=== PATIENT | male | born 1995 | race Caucasian/White ===

== ENCOUNTER 2017-09-06 16:06 | Observation (INO) | payer SELFPAY ==
[~2017-09-06] VITALS: Ht 177.8 cm; Wt 67.4 kg
[~2017-09-06 16:06] MED LIST: BPR150TCR PO; CLN.1T PO; GUAN2TAB6 PO; METH10TA8 PO; QTP25T PO; SULF1TAB35 PO
[2017-09-06] MEDS ORDERED: LACTATED RINGERS 1,000 ML IV ONE ×2 (17:08→20:25)
[2017-09-06 17:49] LABS: BASOPHILS # (AUTO) 0.1 10^3/uL (0.0-0.1); BASOPHILS % (AUTO) 1 % (0-10); EOSINOPHILS # (AUTO) 0.2 10^3/uL (0.0-0.3); EOSINOPHILS % (AUTO) 3 % (0-10); HEMATOCRIT 45 % (40-54); HEMOGLOBIN 15.9 G/DL (13.3-17.7); LYMPHOCYTES # (AUTO) 1.8 X 10^3 (1.0-4.0); LYMPHOCYTES % (AUTO) 26 % (12-44); MEAN CORPUSCULAR HEMOGLOBIN 33 PG (25-34); MEAN CORPUSCULAR HGB CONC 36 G/DL (32-36); MEAN CORPUSCULAR VOLUME 92 FL (80-99); MEAN PLATELET VOLUME 10.5 FL (7.4-10.4); MONOCYTES # (AUTO) 0.6 X 10^3 (0.0-1.0); MONOCYTES % (AUTO) 8 % (0-12); NEUTROPHILS # (AUTO) 4.3 X 10^3 (1.8-7.8); NEUTROPHILS % (AUTO) 63 % (42-75); PLATELET COUNT 215 10^3/uL (130-400); RED BLOOD COUNT 4.83 10^6/uL (4.35-5.85); RED CELL DISTRIBUTION WIDTH 11.9 % (10.0-14.5); WHITE BLOOD COUNT 6.9 10^3/uL (4.3-11.0)
--- NOTE | 2017-09-06 17:56 | Diagnostic Imaging Report ---
INDICATION: Fever, nausea, and vomiting. PA and lateral views of the chest were obtained. Comparison made with prior examination from 01/15/2015. FINDINGS: The heart size, mediastinal configuration, and pulmonary vascularity are within normal limits. There is no pleural effusion, pneumothorax, or pneumonia. The osseous structures are unremarkable. IMPRESSION: No acute cardiopulmonary abnormality. Dictated by: Dictated on workstation # [id number]
--- NOTE | 2017-09-06 18:00 | ED General ---
General Chief Complaint: Fever-Adult/Adol Stated Complaint: INTERMITTENT FEVER OF 104/SYNCOPE Nursing Triage Note: c/o intermittant high fever since yesterday. Headache wkth nausea and vomiting reported. Reports fever as high as 104. Nursing Sepsis Screen: No Definite Risk Source of Information: Patient Exam Limitations: No Limitations History of Present Illness Date Seen by Provider: Sep 06, 2017 Time Seen by Provider: 17:00 Initial Comments PT ARRIVES VIA POV FROM HOME-DROVE HIMSELF HERE PT STATES HE STARTED GETTING SICK THE NIGHT BEFORE LAST HAS BEEN RUNNING FEVER 103.8-104.2 C/O NAUSEA AND VOMITING--STATES HE HAS NOT BEEN ABLE TO KEEP ANYTHING DOWN C/O HEADACHE C/O BODY ACHES, AND NECK AND UPPER BACK ARE SORE, BUT NO NECK STIFFNESS C/O MILD NON-PRODUCTIVE COUGH C/O SHORTNESS OF BREATH ON MINIMAL EXERTION C/O MUCH FATIGUE, ESPECIALLY WITH EXERTION STATES HE HAS BEEN LIGHT HEADED TODAY, AND WAS DRIVING ( GIRLFRIEND WAS IN THE CAR WITH HIM ) AND BEGAN TO FEEL LIGHTHEADED AND PULLED OVER AND PASSED OUT FOR 1-2 SECONDS--NO INJURY STATES HE VOIDED AN HOUR AGO, BUT URINE WAS VERY DARK HAS NOT HAD BM SINCE YESTERDAY AM--NOT REALLY EATING OR DRINKING NO ABDOMINAL PAIN NO VISION CHANGES NO URI/SINUS SYMPTOMS OR SORE THROAT STATES HE TRIED TO GO TO WORK TODAY FOR A COUPLE OF HOURS, BUT HAD TO LEAVE BECAUSE HE WAS SO LIGHTHEADED AND HAVING SHORTNESS OF BREATH WITH EXERTION NO KNOWN SICK CONTACTS HAS BEEN TAKING 1200 MG TYLENOL AT A TIME FOR SYMPTOMS--LAST DOSE WAS AT 0500 THIS AM HAS BEEN SWEATING ALOT WHEN HIS FEVER BREAKS PCP: MARIO ALBERTO Allergies and Home Medications Allergies Coded Allergies: No Known Drug Allergies (Unverified , 11/29/11) Home Medications Sulfamethoxazole/Trimethoprim 1 Each Tablet, 1 EACH PO BID Prescribed by: CATHI MANDUJANO on 04/26/15 8802 Patient Home Medication List Home Medication List Reviewed: Yes Constitutional: see HPI, diaphoresis, dizziness, fever, malaise, weakness EENTM: no symptoms reported, No ear pain, No blurred vision, No double vision, No eye pain, No nose congestion, No throat pain, No throat swelling Respiratory: see HPI, cough, dyspnea on exertion, No phlegm, short of breath, No wheezing Cardiovascular: see HPI, No chest pain, No edema, No palpitations, syncope, No vascular heart diseas Gastrointestinal: see HPI, No abdominal pain, No constipation, No diarrhea, loss of appetite, nausea, vomiting Genitourinary: see HPI, decreased output Musculoskeletal: see HPI, back pain, muscle pain, No muscle stiffness, No muscle cramps, neck pain Skin: no symptoms reported, No rash Psychiatric/Neurological: See HPI, Headache, Denies Numbness, Denies Paresthesia, Denies Seizure, Denies Tingling, Denies Tremors Hematologic/Lymphatic: No Symptoms Reported Immunological/Allergic: no symptoms reported Past Ryrkcmr-Artxph-Kebded Hx Patient Social History Alcohol Use: Denies Use Recreational Drug Use: Yes (DAILY MARIJUANA USE--CURRENTLY IN DRUG REHAB-NO THC X 3 WEEKS. PER PT ON 09/06/17) Drug of Choice: marijuana abuse Smoking Status: Current Everyday Smoker (2 PPD) Type Used: Cigarettes (2 PPD) Recent Foreign Travel: No Contact w/Someone Who Travel: No Recent Infectious Disease Expo: No Immunizations Up To Date Tetanus Booster (TDap): Less than 5yrs Seasonal Allergies Seasonal Allergies: No Surgeries History of Surgeries: Yes (HAS SCAR ON LEFT CHEST--UNKNOWN PROCEDURE; RIGHT HAND FX/ORIF; RIGHT INDEX FINGER INJURY-MULTIPLE SURGERIES) Surgeries: Orthopedic Respiratory History of Respiratory Disorde: No Cardiovascular History of Cardiac Disorders: Yes (MURMUR INFANT) Cardiac Disorders: Heart Murmur Neurological History of Neurological Disord: No Reproductive System Hx Reproductive Disorders: No Sexually Transmitted Disease: No Genitourinary History of Genitourinary Disor: No Gastrointestinal History of Gastrointestinal Di: No Musculoskeletal History of Musculoskeletal Dis: No Endocrine History of Endocrine Disorders: No HEENT History of HEENT Disorders: No Cancer History of Cancer: No Psychosocial History of Psychiatric Problem: Yes Behavioral Health Disorders: Depression Integumentary History of Skin or Integumenta: No Blood Transfusions History of Blood Disorders: No Physical Exam Vital Signs Vital Signs - First Documented 09/06/17 17:11 Temp 98.4 Pulse 90 Resp 16 B/P (MAP) 132/70 (90) Pulse Ox 98 O2 Delivery Room Air Capillary Refill : Less Than 3 Seconds General Appearance: No Apparent Distress, WD/WN, Other (SMILING, VERY TALKATIVE. MOVES QUICKLY WITHOUT DIFFICULTY. WALKS UPRIGHT WITHOUT DIFFICULTY. DOES NOT APPEAR ILL) HEENT: PERRL/EOMI, TMs Normal, Normal ENT Inspection, Pharynx Normal, Moist Mucous Membranes, No Photophobia, Other (NO SINUS TENDERNESS; LEFT FRONT TOOTH FX/CARIES) Neck: Full Range of Motion, Normal Inspection, Non Tender, Supple, No Lymphadenopathy (L), No Lymphadenopathy (R) Respiratory: Chest Non Tender, Normal Breath Sounds, No Accessory Muscle Use, No Respiratory Distress Cardiovascular: Regular Rate, Rhythm, No Edema, No JVD, No Murmur, Normal Peripheral Pulses Gastrointestinal: Normal Bowel Sounds, No Organomegaly, No Pulsatile Mass, Non Tender, Soft Back: Normal Inspection, No CVA Tenderness, No Vertebral Tenderness Extremity: Normal Capillary Refill, Normal Inspection, Normal Range of Motion, Non Tender, No Calf Tenderness, No Pedal Edema Neurologic/Psychiatric: Alert, Oriented x3, No Motor/Sensory Deficits, Normal Mood/Affect, conditioner tumbler II-XII Norm as Tested, No Abnormal Cerebellar Tests Skin: Normal Color, Warm/Dry, No Rash Focused Exam Evaluation Lactate Level Laboratory Tests 09/06/17 17:40: Lactic Acid Level 2.07*H 09/06/17 20:03: Lactic Acid Level 0.62 Lactic Acid Level Laboratory Tests Test 09/06/17 17:40 09/06/17 20:03 Lactic Acid Level 2.07 MMOL/L (0.50-2.00) *H 0.62 MMOL/L (0.50-2.00) Discussed Risk,Benefits: Yes Patient Consents: Yes Position: Lying Sterile Technique: Yes Opening Pressure: 4 Fluid Color: CLEAR Size of Disposal Tray Used: Adult Other Comment: PERFORMED BY OUTDOOR GUIDE--SEE PROCEDURE NOTES Progress/Results/Core Measures Suspected Sepsis Recent Fever Within 48 Hours: Yes Infection Criteria Present: Suspected New Infection New/Unexplained Altered Menta: No Sepsis Screen: No Definite Risk Sepsis Diagnosis: SIRS Temperature:98.4 Pulse: 90 Respiratory Rate: 16 Laboratory Tests 09/06/17 17:40: White Blood Count 6.9 Blood Pressure 132 /70 Mean: 90 Laboratory Tests 09/06/17 17:40: Lactic Acid Level 2.07*H 09/06/17 20:03: Lactic Acid Level 0.62 Laboratory Tests 09/06/17 17:40: Creatinine 0.86, Platelet Count 215, Total Bilirubin 0.5 Results/Orders Lab Results Laboratory Tests Test 09/06/17 17:40 09/06/17 17:42 09/06/17 18:50 09/06/17 19:50 Range/Units White Blood Count 6.9 4.3-11.0 10^3/uL Red Blood Count 4.83 4.35-5.85 10^6/uL Hemoglobin 15.9 13.3-17.7 G/DL Hematocrit 45 40-54 % Mean Corpuscular Volume 92 80-99 FL Mean Corpuscular Hemoglobin 33 25-34 PG Mean Corpuscular Hemoglobin Concent 36 32-36 G/DL Red Cell Distribution Width 11.9 10.0-14.5 % Platelet Count 215 130-400 10^3/uL Mean Platelet Volume 10.5 H 7.4-10.4 FL Neutrophils (%) (Auto) 63 42-75 % Lymphocytes (%) (Auto) 26 12-44 % Monocytes (%) (Auto) 8 0-12 % Eosinophils (%) (Auto) 3 0-10 % Basophils (%) (Auto) 1 0-10 % Neutrophils # (Auto) 4.3 1.8-7.8 X 10^3 Lymphocytes # (Auto) 1.8 1.0-4.0 X 10^3 Monocytes # (Auto) 0.6 0.0-1.0 X 10^3 Eosinophils # (Auto) 0.2 0.0-0.3 10^3/uL Basophils # (Auto) 0.1 0.0-0.1 10^3/uL Sodium Level 141 135-145 MMOL/L Potassium Level 4.2 3.6-5.0 MMOL/L Chloride Level 106 98-107 MMOL/L Carbon Dioxide Level 27 21-32 MMOL/L Anion Gap 8 5-14 MMOL/L Blood Urea Nitrogen 15 7-18 MG/DL Creatinine 0.86 0.60-1.30 MG/DL Estimat Glomerular Filtration Rate > 60 BUN/Creatinine Ratio 17 Glucose Level 84 70-105 MG/DL Lactic Acid Level 2.07 *H 0.50-2.00 MMOL/L Calcium Level 9.4 8.5-10.1 MG/DL Magnesium Level 2.2 1.8-2.4 MG/DL Total Bilirubin 0.5 0.1-1.0 MG/DL Aspartate Amino Transf (AST/SGOT) 26 5-34 U/L Alanine Aminotransferase (ALT/SGPT) 58 H 0-55 U/L Alkaline Phosphatase 62 40-136 U/L Total Protein 7.5 6.4-8.2 GM/DL Albumin 4.8 H 3.2-4.5 GM/DL Monoscreen NEGATIVE NEGATIVE Group A Streptococcus Screen NEGATIVE NEGATIVE Urine Color YELLOW Urine Clarity CLEAR Urine pH 8 5-9 Urine Specific [place] 1.010 L 1.016-1.022 Urine Protein NEGATIVE NEGATIVE Urine Glucose (UA) NEGATIVE NEGATIVE Urine Ketones NEGATIVE NEGATIVE Urine Nitrite NEGATIVE NEGATIVE Urine Bilirubin NEGATIVE NEGATIVE Urine Urobilinogen NORMAL NORMAL MG/DL Urine Leukocyte Esterase 1+ H NEGATIVE Urine RBC (Auto) NEGATIVE NEGATIVE Urine RBC NONE /HPF Urine WBC RARE /HPF Urine Crystals NONE /LPF Urine Bacteria NONE /HPF Urine Casts NONE /LPF Urine Mucus NEGATIVE /LPF Urine Culture Indicated NO CSF Tube Number 4 CSF Appearance CLEAR CSF Color COLORLESS CSF WBC 0 0-5 CELLS CSF RBC 0 0-0 CELLS CSF Lymphocytes % CSF Mononuclear WBCs % CSF Polynuclear WBCs % CSF Glucose 51 50-80 MG/DL CSF Total Protein 30 15-40 MG/DL Test 09/06/17 20:03 Range/Units Lactic Acid Level 0.62 0.50-2.00 MMOL/L Micro Results Microbiology 09/06/17 Influenza Types A,B Antigen (KERRY) - Final, Complete My Orders Orders - JASS SOTO DO Saline Lock/Iv-Start (09/06/17 17:08) Monitor-Rhythm Ecg Trace Only (09/06/17 17:08) Cbc With Automated Diff (09/06/17 17:08) Comprehensive Metabolic Panel (09/06/17 17:08) Lactic Acid Analyzer (09/06/17 17:08) Magnesium (09/06/17 17:08) Monotest (09/06/17 17:08) Rapid Strep A Screen (09/06/17 17:08) Ua Culture If Indicated (09/06/17 17:08) Blood Culture (09/06/17 17:08) Influenza A And B Antigens (09/06/17 17:08) Chest Pa/Lat (2 View) (09/06/17 17:08) Saline Lock/Iv-Start (09/06/17 17:08) Lactated Ringers (Lr 1000 Ml Iv Solution (09/06/17 17:08) Ct Head Wo (09/06/17 18:50) Ceftriaxone Injection (Rocephin Injectio (09/06/17 19:15) Csf Standard Panel (09/06/17 19:17) Csf Cell Count (09/06/17 19:17) Csf Glucose (09/06/17 19:17) Csf Total Protein (09/06/17 19:17) Csf Culture (09/06/17 19:17) Fentanyl Injection (Sublimaze Injection (09/06/17 20:25) Saline Lock/Iv-Start (09/06/17 20:25) Lactated Ringers (Lr 1000 Ml Iv Solution (09/06/17 20:25) Medications Given in ED Current Medications Medications Dose Ordered Sig/Jena Route Start Time Stop Time Status Last Admin Dose Admin Ceftriaxone Sodium 2000 mg/ Sodium Chloride 100 ml @ 200 mls/hr ONCE ONCE IV 09/06/17 19:15 09/06/17 19:44 DC 09/06/17 20:29 200 MLS/HR Lactated Ringer's 1,000 ml @ 0 mls/hr Q0M ONCE IV 09/06/17 17:08 09/06/17 17:10 DC 09/06/17 18:07 1,000 MLS/HR Vital Signs/I&O Vital Sign - Last 12Hours 09/06/17 17:11 Temp 98.4 Pulse 90 Resp 16 B/P (MAP) 132/70 (90) Pulse Ox 98 O2 Delivery Room Air Capillary Refill : Less Than 3 Seconds Blood Pressure Mean: 90 Progress Note : Progress Note CONTINUED TO C/O HEADACHE THROUGHOUT ER STAY Diagnostic Imaging Comments CXR--NO ACUTE PROCESS, PER RADIOLOGIST REPORT @ 1814 CT HEAD--NO ACUTE PROCESS, PER RADIOLOGIST REPORT @ 1928 Reviewed: Reviewed by Me Departure Communication (Admissions) Progress Notes 1849--SPOKE WITH KENNA WARREN, FOR LUMBAR PUNCTURE. WOULD LIKE HEAD CT ORDERED, AND SHE WILL BE IN TO SEE PT 1914--BRIANA HERE TO SEE PT AND DO L.P. 2019--SPOKE WITH DR. MADRIGAL, ACCEPTS PT FOR ADMIT Impression Impression: Primary Impression: Fever Additional Impressions: Headache R/O MENINGITIS Disposition: ADMITTED INPATIENT Condition: Stable Admissions Decision to Admit Reason: Admit from ER (General) Decision to Admit/Date: Sep 06, 2017 Time/Decision to Admit Time: 20:20 Departure-Patient Inst. Referrals: NO,LOCAL PHYSICIAN (PCP/Family) Primary Care Physician JASS SOTO DO Sep 06, 2017 18:00
[2017-09-06 18:08] LABS: ALANINE AMINOTRANSFERASE 58 U/L (0-55); ALBUMIN 4.8 GM/DL (3.2-4.5); ALKALINE PHOSPHATASE 62 U/L (40-136); BILIRUBIN,TOTAL 0.5 MG/DL (0.1-1.0); BUN/CREATININE RATIO 17; CALCIUM 9.4 MG/DL (8.5-10.1); CARBON DIOXIDE 27 MMOL/L (21-32); CHLORIDE 106 MMOL/L (98-107); CREATININE SERUM 0.86 MG/DL (0.60-1.30); GFR ESTIMATED > 60; GLUCOSE 84 MG/DL (70-105); MAGNESIUM 2.2 MG/DL (1.8-2.4); POTASSIUM 4.2 MMOL/L (3.6-5.0); SODIUM 141 MMOL/L (135-145); TOTAL PROTEIN 7.5 GM/DL (6.4-8.2)
[2017-09-06 18:58] LABS: BILIRUBIN,URINE NEGATIVE (NEGATIVE); CLARITY,URINE CLEAR; COLOR,URINE YELLOW; GLUCOSE, URINE (UA) NEGATIVE (NEGATIVE); KETONES,URINE NEGATIVE (NEGATIVE); LEUKOCYTE ESTERASE ,URINE 1+ (NEGATIVE); NITRITE,URINE NEGATIVE (NEGATIVE); PH,URINE 8 (5-9); PROTEIN,URINE NEGATIVE (NEGATIVE); UROBILINOGEN,URINE NORMAL (NORMAL)
[2017-09-06 19:04] LABS: WBC,URINE RARE /HPF
[2017-09-06] MEDS ORDERED: cefTRIAXone INJECTION 2,000 MG in NS (IVPB) 100 ML IV ONE (19:15)
--- NOTE | 2017-09-06 19:15 | Diagnostic Imaging Report ---
PROCEDURE: CT head without contrast. TECHNIQUE: Multiple contiguous axial images were obtained through the brain without the use of intravenous contrast. INDICATION: Fever and headache. COMPARISON: 11/29/2011 FINDINGS: There is no midline shift or mass effect. The ventricles and sulci are unremarkable. No evidence for acute intracranial hemorrhage, abnormal extra-axial fluid collections or cerebral edema is present. The basilar cisterns are unremarkable. The bony calvarium is intact. The visualized paranasal sinuses and mastoid air cells are clear. IMPRESSION: Negative appearing noncontrast CT of the head. Dictated by: Dictated on workstation # [id number]
[2017-09-06 20:06] LABS: APPEARANCE,CSF CLEAR; COLOR,CSF COLORLESS; RED BLOOD CELL,CSF 0 CELLS (0-0); WHITE BLOOD CELL,CSF 0 CELLS (0-5)
[2017-09-06 20:07] LABS: CSF TUBE NUMBER 4
--- NOTE | 2017-09-06 20:10 | Anesthesia-Procedure Note ---
Procedures/Interventions Procedure Start/Stop/Diagnosis Date of Procedure: Sep 06, 2017 Start Time: 19:30 Stop Time: 19:56 Lumbar Puncture Discussed Risk,Benefits: Yes Patient Consents: Yes Position: Lying, L4-5 Sterile Technique: Yes (chloraprep) Opening Pressure: 4 mmHg Fluid Color: clear Spinal Needle Used: Other (25g Pencan spinal needle) Procedure Notes Patient tolerated the procedure well. Attempts x 1 at L4-L5. Reported opening pressure of [address] Begum. 3cc of CSF obtained in each of 4 vials and sent to lab. Reported off to ANNA Hancock in ED BRIANA MELENDEZ CRNA Sep 06, 2017 20:10
[2017-09-06] MEDS ORDERED: fentaNYL INJECTION 100 MCG/2 ML AMP IVP STA (20:25)
[2017-09-06 20:26] LABS: CSF GLUCOSE 51 MG/DL (50-80); CSF TOTAL PROTEIN 30 MG/DL (15-40)
[2017-09-06] MEDS: LACTATED RINGERS 1,000 ML IV SCH (23:10)
[2017-09-07] VITALS: BP 126/67
[2017-09-07] MEDS ORDERED: fentaNYL INJECTION 100 MCG/2 ML AMP IV PRN (00:45)
[2017-09-07] MEDS ORDERED: ONDANSETRON 4 MG/2 ML (SDV) Z0FRAN IV PRN (00:45)
[2017-09-07] MEDS ORDERED: ACETAMINOPHEN 500 MG TAB (TYLENOL) PO PRN (00:45)
[2017-09-07] MEDS ORDERED: IBUPROFEN 800 MG (MOTRIN) TAB PO PRN (00:45)
[2017-09-07 02:00] VITALS: BP 109/56
[2017-09-07 04:00] VITALS: BP 127/79
[2017-09-07] MEDS: LACTATED RINGERS 1,000 ML IV SCH ×2 (04:14→09:24)
[2017-09-07 05:23] LABS: BASOPHILS # (AUTO) 0.1 10^3/uL (0.0-0.1); BASOPHILS % (AUTO) 1 % (0-10); EOSINOPHILS # (AUTO) 0.2 10^3/uL (0.0-0.3); EOSINOPHILS % (AUTO) 3 % (0-10); HEMATOCRIT 41 % (40-54); HEMOGLOBIN 14.2 G/DL (13.3-17.7); LYMPHOCYTES # (AUTO) 2.4 X 10^3 (1.0-4.0); LYMPHOCYTES % (AUTO) 36 % (12-44); MEAN CORPUSCULAR HEMOGLOBIN 32 PG (25-34); MEAN CORPUSCULAR HGB CONC 35 G/DL (32-36); MEAN CORPUSCULAR VOLUME 92 FL (80-99); MEAN PLATELET VOLUME 10.5 FL (7.4-10.4); MONOCYTES # (AUTO) 0.7 X 10^3 (0.0-1.0); MONOCYTES % (AUTO) 11 % (0-12); NEUTROPHILS # (AUTO) 3.2 X 10^3 (1.8-7.8); NEUTROPHILS % (AUTO) 49 % (42-75); PLATELET COUNT 175 10^3/uL (130-400); RED CELL DISTRIBUTION WIDTH 11.7 % (10.0-14.5); WHITE BLOOD COUNT 6.6 10^3/uL (4.3-11.0)
[2017-09-07 05:48] LABS: ALANINE AMINOTRANSFERASE 44 U/L (0-55); ALBUMIN 3.7 GM/DL (3.2-4.5); ALKALINE PHOSPHATASE 46 U/L (40-136); BILIRUBIN,TOTAL 0.7 MG/DL (0.1-1.0); BUN/CREATININE RATIO 12; CALCIUM 8.4 MG/DL (8.5-10.1); CARBON DIOXIDE 25 MMOL/L (21-32); CHLORIDE 108 MMOL/L (98-107); CREATININE SERUM 0.81 MG/DL (0.60-1.30); GFR ESTIMATED > 60; GLUCOSE 100 MG/DL (70-105); POTASSIUM 3.9 MMOL/L (3.6-5.0); SODIUM 139 MMOL/L (135-145); TOTAL PROTEIN 5.5 GM/DL (6.4-8.2)
[2017-09-07 06:00] VITALS: BP 100/59
[2017-09-07] MEDS ORDERED: INFLUENZA TRIvalent 2017-2018 0.5 ML/45 MCG SYR IM ONE (07:30)
[2017-09-07 08:00] VITALS: BP 116/63
--- NOTE | 2017-09-07 10:26 | Short Stay Summary ---
History of Present Illness History of Present Illness Reason for visit/HPI 22 yo M that presented to ER with fever and headache. States that he had temperature of 101 at home. No fever upon arrival to ER. Patient states that he does not get headaches very often and this one is worse then normal. + sinus congestion with cough. Denies any medical conditions. States that several people at work have been sick but no one at home is sick. Works at [employer]. Denies any shortness of breath, chest pain, weakness. Date of Admission Sep 06, 2017 at 20:43 Date of Discharge 09/07/2017 Time Seen by Provider: 10:00 Attending Physician Edna Miranda MD Admitting Physician No,Local Physician Consult Allergies and Home Medications Allergies Coded Allergies: No Known Drug Allergies (Unverified , 11/29/11) Patient Home Medication List Home Medication List Reviewed: Yes Past Hluxbbc-Qnpbie-Gnamlb Hx Patient Social History Living Status: Lives with girl friend Alcohol Use: Denies Use Recreational Drug Use: No (3weeks clean) Drug of Choice: Knowthena Smoking Status: Current Everyday Smoker Type Used: Cigarettes Physical Abuse Screen: No Sexual Abuse: No Recent Foreign Travel: No Contact w/other who traveled: No Recent Hopitalizations: No Recent Infectious Disease Expo: No Immunizations Up To Date Tetanus Booster (TDap): Less than 5yrs Date of Influenza Vaccine: Sep 07, 2017 Seasonal Allergies Seasonal Allergies: No Surgeries Yes Orthopedic Respiratory No Cardiovascular Yes (MURMUR INFANT) Heart Murmur Neurological No Reproductive System Hx Reproductive Disorders: No Sexually Transmitted Disease: No Genitourinary No Gastrointestinal No Musculoskeletal Yes Arthritis Endocrine History of Endocrine Disorders: No HEENT History of HEENT Disorders: No Cancer No Psychosocial History of Psychiatric Problem: Yes Behavioral Health Disorders: Sleep Difficulties, Suicide Attempts, Depression Integumentary History of Skin or Integumenta: No Blood Transfusions History of Blood Disorders: No Constitutional: No chills, No dizziness, fever, malaise, No weakness EENTM: nose congestion, No vision loss, No mouth pain, No throat pain, No throat swelling Respiratory: cough, No dyspnea on exertion, No orthopnea, No short of breath Cardiovascular: no symptoms reported, No chest pain, No edema, No palpitations Gastrointestinal: no symptoms reported, No abdominal pain, No constipation, No diarrhea, No nausea, No vomiting Genitourinary: no symptoms reported, No dysuria, No frequency, No hematuria Musculoskeletal: no symptoms reported, No joint pain, No muscle pain, No neck pain Skin: no symptoms reported, No lesions, No rash Psychiatric/Neurological: Headache (improved since yesterday), Denies Tingling , Denies Weakness Physical Exam Vital Signs Vital Signs - First Documented 09/06/17 17:11 Temp 98.4 Pulse 90 Resp 16 B/P (MAP) 132/70 (90) Pulse Ox 98 O2 Delivery Room Air Capillary Refill : Less Than 3 Seconds General Appearance: No Apparent Distress, WD/WN HEENT: PERRL/EOMI, Pharynx Normal, Moist Mucous Membranes Neck: Full Range of Motion, Non Tender, Supple Respiratory: Chest Non Tender, Lungs Clear, Normal Breath Sounds, No Accessory Muscle Use, No Respiratory Distress Cardiovascular: Regular Rate, Rhythm, No Edema, No Murmur, Normal Peripheral Pulses Gastrointestinal: Normal Bowel Sounds, No Organomegaly, Non Tender, Soft Back: No CVA Tenderness, No Vertebral Tenderness Extremity: Normal Capillary Refill, No Calf Tenderness, No Pedal Edema Neurologic/Psychiatric: Alert, Oriented x3, No Motor/Sensory Deficits, Normal Mood/Affect, nurse practitioner physician assistant II-XII Norm as Tested Skin: Normal Color, Warm/Dry Lymphatic: No Adenopathy Clinical Quality Measures DVT/VTE Risk/Contraindication: Risk Factor Score Per Nursin RFS Level Per Nursing on Admit: 2=Moderate Short Stay Diagnosis Discharge Diagnosis-Short Stay Admission Diagnosis: Fever Headache Final Discharge Diagnosis: Acute Viral illness Conclusion Labs Bad tableConclusion/Plan 22 yo M with fever and headache admitted for concerns of possible meningitis Plan Fever - No fever during observation Headache - Headache much improved, no neck pain or stiffness - Normal Labs and LP results Home today with followup at [facility] Copy Copies To 1: EDNA MIRANDA MD, HOLLY R MD Sep 07, 2017 10:26 am
--- NOTE | 2017-09-07 10:31 | Discharge Instructions ---
Discharge Inst-[facility] Discharge Medications New, Converted or Re-Newed RX: Other (none) Patient Instructions Goal/Follow Up Appt: Evelia will call you on Saturday to get you a followup appt at [facility] Patient Instructions: - Ok to go back to work on Saturday - Push hydration Return to The Hospital For: - Fever that does not improve with tylenol or motrin - Worsening headache Activity & Diet Discharge Diet: No Restrictions Activity as Tolerated: Yes Copy Copies To 1: EDNA MADRIGAL MD, HOLLY R MD Sep 07, 2017 10:30
[2017-09-07] MEDS ORDERED: cefTRIAXone 2 GM/NS 100 ML IVPB IV SCH ×2 (23:00)
== END 2017-09-07 10:31 | disposition home or self-care (01) ==
LOC: EDUNIT# 16:06 → ER 16:08 → UNDOADMOB 20:43 → 4TH 20:43 → UNDODISOB 09-07 12:10
PROVIDERS: ADMIT Family Medicine; ATTEND Family Medicine
DX: R50.9 Fever, unspecified (principal); R51 Headache; B34.9 Viral infection, unspecified; F17.210 Nicotine dependence, cigarettes, uncomplicated; F32.9 Major depressive disorder, single episode, unspecified; Z79.899 Other long term (current) drug therapy
CPT/HCPCS: 36415; 70450; 71046; 80053; 81000; 82945; 83605; 83735; 84157; 85025; 86308; 87040; 87070; 87205; 87430; 87804; 89051; 93041; 96361; 96365; 96375; G0378

== ENCOUNTER 2018-11-01 11:42 | Emergency (ER) | payer SELFPAY ==
[~2018-11-01] VITALS: Ht 177.8 cm; Wt 68.0 kg
--- OUTSIDE RECORDS SUMMARY | 2018-11-01 13:30 | XMS REPORT ---
Author Author Migration, Doctor Organization [facility] Address Unknown Phone Unavailable Care Team Providers Care Exhibit Designer Name Role Phone Migration, Doctor Unavailable Unavailable PROBLEMS Type Condition ICD9-CM Code BMR97-NN Code Onset Dates Condition Status SNOMED Code Problem Insomnia, unspecified 780.52 Active 481365837 Problem Unspecified dental caries 521.00 Active 56022805 Problem Routine or child health check V20.2 Active 235781781 Problem Other general medical examination for administrative purposes V70.3 Active 50670912 Problem Personal history of allergy to other foods V15.05 Active 280981188 ALLERGIES No Information ENCOUNTERS Encounter Location Date Diagnosis [place] [address] [place] [id number] [place] [address] Aug, [place] [address] [id number] [place] [address] Aug, [place] [address] [address] [id number] [place] [address] Aug, [place] [address] [place] [address] [id number] [place] [address] Aug, [place] [id number] [place] [address] Aug, Screen for STD (sexually transmitted disease) Z11.3 ; Exposure to STD Z20.2 and Stress headaches F45.41 [place] [id number] [place] [address] 10 Jul, 2015 Cutaneous horn L85.8 [place] [address] [address] [id number] [place] [address] Sep, [place] [address] [address] [id number] [place] [address] Sep, [place] [id number] [place] [address] Sep, [facility] [address] [id number] [place] [address] Sep, [facility] [address] [id number] [place] [address] Jun, [facility] [address] [id number] [place] [address] Jun, [facility] [address] [id number] [place] [address] Mar, [facility] [address] [id number] [place] [address] Mar, [facility] [address] [id number] [place] [address] Jan, [facility] [address] [id number] [place] [address] Dec, [facility] [address] [id number] [place] [address] Nov, [facility] [address] [id number] [place] [address] Nov, [facility] [address] [id number] [place] [address] October, [facility] [address] [id number] [place] [address] October, [facility] [address] [id number] [place] [address] October, [facility] [address] [id number] [place] [address] Sep, [facility] [address] [id number] [place] [address] Sep, [facility] [address] [id number] [place] [address] Aug, [facility] [address] [id number] [place] [address] Aug, [facility] [place] [facility] [address] [id number] [place] [address] Aug, [facility] [address] [id number] [place] [address] Jul, [facility] [place] [facility] [address] [id number] [place] [address] Jul, [facility] [address] [id number] [place] [address] Jul, [facility] [address] [id number] [place] [address] Jul, [facility] [address] [id number] [place] [address] Jul, [facility] [place] [facility] [address] [id number] [place] [address] Jun, [facility] [address] [id number] [place] [address] Jun, [facility] [place] [facility] [address] [facility] [id number] [place] [address] May, [facility] [address] [id number] [place] [address] May, [facility] [place] [facility] [address] [id number] [address] Apr, [facility] [place] [facility] [address] [id number] [place] [address] Apr, [facility] [place] [facility] [address] [id number] [place] [address] Mar, [facility] [place] [facility] [address] [id number] [place] [address] Mar, [facility] [place] [facility] [address] [id number] [place] [address] Jan, [facility] [place] [facility] [address] [id number] [place] [address] Jan, [facility] [place] [facility] [address] [id number] [place] [address] Jan, [facility] [place] [facility] [address] [id number] [place] [address] Jan, [facility] [place] [facility] [address] [id number] [place] [address] Dec, [facility] [place] [facility] [address] [id number] [place] [id number] Nov, [facility] [place] [facility] [address] [id number] [place] [id number] Nov, [facility] [place] [facility] [address] [id number] [place] [address] Nov, [facility] [place] [facility] [address] [id number] [place] [address] Nov, [facility] [place] [facility] [address] [id number] [place] [address] October, [facility] [place] [facility] [address] [id number] [place] [address] Sep, [facility] [place] [facility] [address] [id number] [place] [address] Aug, [facility] [place] [facility] [address] [id number] [place] [address] Aug, [facility] [place] [facility] [address] [id number] [place] [address] Aug, [facility] [place] [facility] [address] [id number] [place] [address] Aug, [facility] [place] [facility] [address] [id number] [place] [address] Aug, [facility] [place] [facility] [address] [facility] [id number] [address] Jul, [facility] [address] [address] Jun, [facility] [address] [facility] [id number] [address] May, [facility] [address] [facility] [id number] [address] May, [facility] [address] [facility] [id number] [place] [address] May, [facility] [id number] [place] [address] Apr, [facility] [address] [address] Mar, [facility] [address] [address] Mar, [facility] [address] [address] Mar, [facility] [address] [address] October, [facility] [id number] [address] Sep, [facility] [id number] [address] Aug, IMMUNIZATIONS No Known Immunizations SOCIAL HISTORY Never Assessed REASON FOR VISIT [place] OF CARE VITAL SIGNS MEDICATIONS Unknown Medications RESULTS No Results PROCEDURES No Known procedures INSTRUCTIONS MEDICATIONS ADMINISTERED No Known Medications MEDICAL (GENERAL) HISTORY Type Description Date Surgical History surgery on right index finger Surgical History surgery on right pinky fracture Hospitalization History surgeries Hospitalization History seizures
--- OUTSIDE RECORDS SUMMARY | 2018-11-01 13:30 | XMS REPORT ---
Author Author Migration, Doctor Organization [facility] Address Unknown Phone Unavailable Care Team Providers Care Christmas Tree Grader Name Role Phone Migration, Doctor Unavailable Unavailable PROBLEMS Type Condition ICD9-CM Code EEZ15-RN Code Onset Dates Condition Status SNOMED Code Problem Insomnia, unspecified 780.52 Active 546022044 Problem Unspecified dental caries 521.00 Active 31959149 Problem Routine or child health check V20.2 Active 079796401 Problem Other general medical examination for administrative purposes V70.3 Active 16211671 Problem Personal history of allergy to other foods V15.05 Active 091059461 ALLERGIES No Information ENCOUNTERS Encounter Location Date Diagnosis [place] [id number] [place] [address] Aug, [place] [id number] [place] [address] Aug, [place] [id number] [place] [address] Aug, [place] [address] [id number] [place] [address] Aug, [place] [id number] [place] [address] Aug, Screen for STD (sexually transmitted disease) Z11.3 ; Exposure to STD Z20.2 and Stress headaches F45.41 [place] [id number] [place] [address] 10 Jul, 2015 Cutaneous horn L85.8 [place] [address] [place] [id number] [place] [address] Sep, [place] [address] [place] [address] [id number] [place] [address] Sep, [place] [address] [place] [address] Sep, [facility] [address] [id number] [place] [address] Sep, [facility] [address] [id number] [place] [address] Jun, [facility] [address] [id number] [place] [address] Jun, [facility] [address] [id number] [place] [address] Mar, [facility] [address] [id number] [place] [address] Mar, [facility] [address] [id number] [place] [address] Jan, [facility] [address] [id number] [place] [address] Dec, [facility] [address] [id number] [place] [address] Nov, [facility] [address] [id number] [place] [address] Nov, [facility] [address] [id number] [place] [address] October, [facility] [address] [id number] [place] [address] October, [facility] [address] [id number] [place] [address] October, [facility] [address] [id number] [place] [address] Sep, [facility] [address] [id number] [place] [address] Sep, [facility] [address] [id number] [place] [address] Aug, [facility] [address] [id number] [place] [address] Aug, [facility] [place] [facility] [address] [id number] [place] [address] Aug, [facility] [address] [id number] [place] [address] Jul, [facility] [place] [facility] [address] [id number] [place] [address] Jul, [facility] [address] [id number] [place] [address] Jul, [facility] [address] [id number] [place] [address] Jul, [facility] [address] [id number] [place] [address] Jul, [facility] [place] [facility] [address] [id number] [place] [address] Jun, [facility] [address] [id number] [place] [address] Jun, [facility] [place] [facility] [address] [facility] [id number] [place] [address] May, [facility] [address] [id number] [place] [address] May, [facility] [place] [facility] [address] [id number], [place] [address] Apr, [facility] [place] [facility] [address] [id number] [place] [address] Apr, [facility] [place] [facility] [address] [id number], [place] [address] Mar, [facility] [place] [facility] [address] [id number] [place] [address] Mar, [facility] [place] [facility] [address] [id number] [place] [address] Jan, [facility] [place] [facility] [address] [id number] [place] [address] Jan, [facility] [place] [facility] [address] [id number] [place] [address] Jan, [facility] [place] [facility] [address] [id number] [place] [address] Jan, [facility] [place] [facility] [address] [id number] [place] [address] Dec, [facility] [place] [facility] [address] [id number] [place] [id number] Nov, [facility] [place] [facility] [address] [id number] [place] [id number] Nov, [facility] [place] [facility] [address] [id number] [place] [address] Nov, [facility] [place] [facility] [address] [id number] [place] [address] Nov, [facility] [place] [facility] [address] [id number] [place] [address] October, [facility] [place] [facility] [address] [id number] [place] [address] Sep, [facility] [place] [facility] [address] [id number] [place] [address] Aug, [facility] [place] [facility] [address] [id number] [place] [address] Aug, [facility] [place] [facility] [address] [id number] [place] [address] Aug, [facility] [place] [facility] [address] [id number] [place] [address] Aug, [facility] [place] [facility] [address] [id number] [place] [address] Aug, [facility] [place] [facility] [address] [facility] [id number], [place] [address] Jul, [facility] [address], [place] [address] Jun, [facility] [address] [facility] [id number], [place] [address] May, [facility] [address] [facility] [id number], [place] [address] May, [facility] [address] [facility] [id number][place] [address] May, [facility] [address] [place] [address] Apr, [facility] [address]65[address] [address] Mar, [facility] [address]65[address], [place] [address] Mar, [facility] [address]65100[place], [place] [address] Mar, [facility] [address]65[address] [address] October, [facility] [address] [id number] [address] Sep, [facility] [address] [id number] [address] Aug, IMMUNIZATIONS No Known Immunizations SOCIAL HISTORY Never Assessed REASON FOR VISIT EMR-[facility] PLAN OF CARE VITAL SIGNS MEDICATIONS Unknown Medications RESULTS No Results PROCEDURES No Known procedures INSTRUCTIONS MEDICATIONS ADMINISTERED No Known Medications MEDICAL (GENERAL) HISTORY Type Description Date Surgical History surgery on right index finger Surgical History surgery on right pinky fracture Hospitalization History surgeries Hospitalization History seizures
--- OUTSIDE RECORDS SUMMARY | 2018-11-01 13:30 | XMS REPORT ---
Author Author EDNA MADRIGAL Organization [facility] [place] Address [address] [place] [address] Care Team Providers Care Senior Test Analyst Name Role Phone EDNA MADRIGAL Unavailable PROBLEMS Type Condition ICD9-CM Code ZBF70-FA Code Onset Dates Condition Status SNOMED Code Problem Unspecified dental caries 521.00 Active 38955438 Problem Insomnia, unspecified 780.52 Active 579374803 Problem Routine infant or child health check V20.2 Active 091308661 Problem Personal history of allergy to other foods V15.05 Active 721161025 Problem Other general medical examination for administrative purposes V70.3 Active 70507595 ALLERGIES No Information ENCOUNTERS Encounter Location Date Diagnosis [place] [address] [address] Aug, [place] [address] [address] Aug, [place] [address] [address] Aug, [place] [address] [id number] [place] [address] Aug, [place] [address] [address] Aug, Screen for STD (sexually transmitted disease) Z11.3 ; Exposure to STD Z20.2 and Stress headaches F45.41 [place] [address] [address] 10 Jul, 2015 Cutaneous horn L85.8 [place] [address] [address] 14 Sep, 2014 [place] [address] [place] [address] Sep, [facility] [address] [id number] [place] [address] Sep, [facility] [place] [facility] [address] [id number] [place] [address] Sep, [facility] [address] [id number] [place] [address] Jun, [facility] [place] [facility] [address] [id number] [place] [address] Jun, [facility] [place] [facility] [address] [id number] [place] [address] Mar, [facility] [place] [facility] [address] [id number] [place] [address] Mar, [facility] [address] [id number] [place] [address] Jan, [facility] [place] [facility] [address] [id number] [place] [address] Dec, [facility] [place] [facility] [address] [id number] [place] [address] Nov, [facility] [place] [facility] [address] [id number] [place] [address] Nov, [facility] [place] [facility] [address] [id number] [place] [address] October, [facility] [place] [facility] [address] [id number] [place] [address] October, [facility] [place] [facility] [address] [id number] [place] [address] October, [facility] [place] [facility] [address] [id number] [place] [address] Sep, [facility] [place] [facility] [address] [id number] [place] [address] Sep, [facility] [place] [facility] [address] [id number] [place] [address] Aug, [facility] [place] [facility] [address] [id number] [place] [address] Aug, [facility] [place] [facility] [address] [id number] [place] [address] 06 Aug, 2012 [facility] [place] [facility] [address] [id number] [place] [address] Jul, [facility] [place] [facility] [address] [id number] [place] [address] Jul, [facility] [place] [facility] [address] [id number] [place] [address] Jul, [facility] [place] [facility] [address] [facility] [id number] [place] [address] Jul, [facility] [place] [facility] [address] [id number] [place] [address] Jul, [facility] [place] [facility] [address] [facility] [id number] [place] [address] Jun, [facility] [place] [facility] [address] [facility] [id number] [place] [address] Jun, [facility] [place] [facility] [address] [facility] [id number] [address] May, [facility] [place] [facility] [address] [id number] [place] [address] May, [facility] [place] [facility] [address] [id number] [place] [address] Apr, [facility] [place] [facility] [address] [id number] [place] [address] Apr, [facility] [place] [facility] [address] [facility] [id number] [place] [address] 08 Mar, 2012 [facility] [place] [facility] [address] [id number] [place] [address] Mar, [facility] [place] [facility] [address] [id number] [place] [address] Jan, [facility] [place] [facility] [address] [id number] [place] [address] Jan, [facility] [place] [facility] [address] [id number] [place] [address] Jan, [facility] [place] [facility] [address] [id number] [place] [address] Jan, [facility] [place] [facility] [address] [id number] [place] [address] Dec, [facility] [place] [facility] [address] [id number] [place] [id number] Nov, [facility] [place] [facility] [address] [id number] [place] [id number] Nov, [facility] [place] [facility] [address] [id number] [place] [address] Nov, [facility] [place] [facility] [address] [id number] [place] [address] Nov, [facility] [place] [facility] [address] [id number] [place] [address] October, [facility] [place] [facility] [address] [id number] [place] [address] Sep, [facility] [place] [facility] [address] [id number] [place] [address] Aug, [facility] [place] [facility] [address] [id number] [place] [address] Aug, [facility] [place] [facility] [address] [id number] [place] [address] Aug, [facility] [place] [facility] [address] [id number] [place] [address] Aug, [facility] [place] [facility] [id number] [address] Aug, [facility] [place] [id number] [address] Jul, [facility] [place] [id number] [address] Jun, [facility] [place] [id number] [address] May, [facility] [place] [id number] [address] May, [facility] [place] [id number] [address] May, [facility] [place] [id number] [address] Apr, [facility] [place] [id number] [address] Mar, [facility] [place] [id number] [address] Mar, [facility] [place] [id number] [address] Mar, [facility] [place] [id number] [address] October, [facility] [place] [id number] [address] Sep, [facility] [place] [id number] [address] Aug, IMMUNIZATIONS No Known Immunizations SOCIAL HISTORY Never Assessed REASON FOR VISIT Hospital admit/DC PLAN OF CARE VITAL SIGNS MEDICATIONS Unknown Medications RESULTS No Results PROCEDURES No Known procedures INSTRUCTIONS MEDICATIONS ADMINISTERED No Known Medications MEDICAL (GENERAL) HISTORY Type Description Date Surgical History surgery on right index finger Surgical History surgery on right pinky fracture Hospitalization History surgeries Hospitalization History seizures
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
--- NOTE | 2018-11-01 13:33 | NUR ---
Patient was walking out and Dr. Antunez advised that the patient was next to be seen. Patient decided he would stay in ER and be seen.
[2018-11-01] MEDS ORDERED: cefTRIAXone FOR IV USE 1,000 MG in WATER (STERILE) FOR INJECTION 10 ML IV ONE (13:45)
[2018-11-01] MEDS ORDERED: NS IV 1000 ML 1,000 ML IV SCH (13:45)
[2018-11-01] MEDS ORDERED: fentaNYL INJECTION 100 MCG/2 ML AMP IVP ONE (13:45)
--- NOTE | 2018-11-01 13:55 | ED GU-Male ---
General Chief Complaint: - Urinary Stated Complaint: SWELLING IN GROIN / BLOOD IN URINE Nursing Triage Note: Patient ambulatory to ER room 6 with complaint of pain and swelling to left groin. Patient states he was helping move a TV yesterday, and tripped. He began having pain to the left groin and this morning states he has swelling to the size of a tennis ball to the left groin area. He states he has had blood present in his urine. Source: patient Exam Limitations: no limitations History of Present Illness Date Seen by Provider: November 01, 2018 Time Seen by Provider: 13:50 Initial Comments This 21-year-old white male presents with left testicular pain and swelling that began starting last night. Patient thought he may have strained himself moving a heavy TV. The patient denies associated urethral discharge or groin rash. The patient has been in a monogamous relationship with his significant other female for the past year. Patient denies fever or chills. Patient has noted hematuria. The patient is concerned that he could have a torsion of his testicle similar to his father in the last several years. Allergies and Home Medications Allergies Coded Allergies: No Known Drug Allergies (Unverified , 11/29/11) Home Medications No Active Prescriptions or Reported Meds Patient Home Medication List Home Medication List Reviewed: Yes Review of Systems Review of Systems Constitutional: No chills, No fever EENTM: no symptoms reported Respiratory: no symptoms reported Cardiovascular: no symptoms reported Gastrointestinal: no symptoms reported Genitourinary: see HPI, hematuria, pain Musculoskeletal: no symptoms reported Skin: no symptoms reported Psychiatric/Neurological: No Symptoms Reported Endocrine: No Symptoms Reported Hematologic/Lymphatic: No Symptoms Reported Past Vmnsbns-Skjlaq-Dqphxg Hx Past Med/Social Hx: Reviewed Nursing Past Med/Soc Hx Patient Social History Alcohol Use: Occasionally Uses Alcohol Beverage of Choice: Beer Recreational Drug Use: Yes Drug of Choice: marijuana Smoking Status: Current Everyday Smoker Type Used: Cigarettes 2nd Hand Smoke Exposure: Yes Recent Foreign Travel: No Contact w/Someone Who Travel: No Recent Infectious Disease Expo: No Recent Hopitalizations: No Immunizations Up To Date Tetanus Booster (TDap): Less than 5yrs PED Vaccines UTD: Yes Date of Influenza Vaccine: Sep 07, 2017 Seasonal Allergies Seasonal Allergies: Yes Past Medical History Surgeries: Yes Orthopedic Respiratory: No Cardiac: No Heart Murmur Neurological: No Reproductive Disorders: No Sexually Transmitted Disease: No Genitourinary: No Gastrointestinal: No Musculoskeletal: No Arthritis Endocrine: No HEENT: No Cancer: No Psychosocial: No Sleep Difficulties, Suicide Attempts, Depression Integumentary: No Blood Disorders: No Physical Exam Vital Signs Vital Signs - First Documented 11/01/18 12:17 Temp 98.3 Pulse 101 Resp 16 B/P (MAP) 118/73 (88) Pulse Ox 100 O2 Delivery Room Air Capillary Refill : Less Than 3 Seconds Height, Weight, BMI Height: 5'10.00" Weight: 150lbs. 9.0oz. [id number]; 20.7 BMI Method:Stated General Appearance: WD/WN, mild distress HEENT: normal ENT inspection Neck: normal inspection Cardiovascular: regular rate, rhythm Respiratory: lungs clear Gastrointestinal: normal bowel sounds Male: other (there is swelling and tenderness to palpation of the left testicle. The left hemiscrotum is inflamed.) Back: normal inspection ( No urethral discharge is appreciated.) Extremities: normal range of motion Neurologic/Psychiatric: no motor/sensory deficits Skin: normal color, warm/dry Progress/Results/Core Measures Suspected Sepsis Recent Fever Within 48 Hours: No Infection Criteria Present: None New/Unexplained Altered Menta: No Sepsis Screen: No Definite Risk SIRS Temperature:98.3 Pulse: 101 Respiratory Rate: 16 Blood Pressure 118 /73 Mean: 88 Results/Orders Lab Results Laboratory Tests Test 11/01/18 14:23 Range/Units My Orders Orders - CHUCK HERNANDEZ MD Ns Iv 1000 Ml (Sodium Chloride 0.9%) (11/01/18 13:45) Ceftriaxone For Iv Use (Rocephin For I (11/01/18 13:45) Fentanyl Injection (Sublimaze Injection (11/01/18 13:45) Ua Culture If Indicated (11/01/18 14:01) Medications Given in ED Current Medications Medications Dose Ordered Sig/Jena Route Start Time Stop Time Status Last Admin Dose Admin Ceftriaxone Sodium 1000 mg/ Sterile Water 10 ml @ 200 mls/hr ONCE ONCE IV 11/01/18 13:45 11/01/18 13:47 DC 11/01/18 13:55 200 MLS/HR Fentanyl Citrate 50 mcg ONCE ONCE IVP 11/01/18 13:45 11/01/18 13:46 DC 11/01/18 13:55 50 MCG Vital Signs/I&O 11/01/18 12:17 Temp 98.3 Pulse 101 Resp 16 B/P (MAP) 118/73 (88) Pulse Ox 100 O2 Delivery Room Air Capillary Refill : Less Than 3 Seconds Blood Pressure Mean: 88 Progress Note : Time: 14:24 Progress Note The patient received a gram of Rocephin IV. My intention is to place the patient on 14 days of doxycycline 100 mg twice a day. My bedside ultrasound I believe demonstrated flow to both testicles. After discussion of the risks and benefits of ruling out torsion of the testicle with formal ultrasound the patient would like to have the ultrasound of his testicle performed at [place]. Departure Impression Primary Impression: Epididymitis, left Disposition: 02 XFER SHT-TRM HOSP Condition: Improved Transfer Time Spoke to Accepting Phy: 14:[address] Valdovinos at [place] Transfer Time: 14:37 Transfer Facility: [place] Method of Transfer: Private Vehicle Departure-Patient Inst. Referrals: NO,LOCAL PHYSICIAN (PCP) Primary Care Physician Scripts No Active Prescriptions or Reported Meds CHUCK HERNANDEZ MD November 01, 2018 13:54
[2018-11-01 14:38] LABS: BILIRUBIN,URINE NEGATIVE (NEGATIVE); CLARITY,URINE SLIGHTLY CLOUDY; COLOR,URINE YELLOW; GLUCOSE, URINE (UA) NEGATIVE (NEGATIVE); KETONES,URINE 3+ (NEGATIVE); LEUKOCYTE ESTERASE ,URINE 2+ (NEGATIVE); NITRITE,URINE POSITIVE (NEGATIVE); PH,URINE 5 (5-9); PROTEIN,URINE 1+ (NEGATIVE); UROBILINOGEN,URINE 1 MG/DL (NORMAL)
[2018-11-01 14:50] LABS: BACTERIA,URINE MODERATE /HPF; RBC,URINE 0-2 /HPF; SQUAMOUS EPITHELIAL CELL,UR 0-2 /HPF
[2018-11-01 14:56] VITALS: BP 112/69
--- NOTE | 2018-11-01 15:05 | NUR ---
Patient transferred to [facility] by private vehicle. Patient's mother driving. Patient requests to have IV taken out prior to transfer. Patient is awake and alert x 4. Patient given packet to give to [facility] upon arrival at their facility. Patient verbalizes understanding of going directly to [facility].
== END 2018-11-01 15:08 | disposition short-term general hospital (02) ==
LOC: EDUNIT# 11:42 → ER 11:43
DX: N45.1 Epididymitis (principal); F32.9 Major depressive disorder, single episode, unspecified; F12.10 Cannabis abuse, uncomplicated; F17.210 Nicotine dependence, cigarettes, uncomplicated; Z98.890 Other specified postprocedural states; Z91.5 Personal history of self-harm
CPT/HCPCS: 81000; 87088

== ENCOUNTER 2019-08-30 01:58 | Emergency (ER) | payer SELFPAY ==
[~2019-08-30] VITALS: Ht 177.8 cm; Wt 70.8 kg
[2019-08-30 02:10] VITALS: BP 124/78
[2019-08-30] MEDS ORDERED: ORPHENADRINE 60 MG/2 ML (NORFLEX) AMP IM STA (02:47)
[2019-08-30] MEDS ORDERED: KETOROLAC 60 MG/2 ML VIAL IM STA (02:47)
[2019-08-30] MEDS ORDERED: HYDROcodone/APAP 5 MG/325 MG (LORTAB) TAB PO ONE (03:00)
--- NOTE | 2019-08-30 03:01 | ED Back Pain ---
General Chief Complaint: Back Problems Stated Complaint: FELL BACK PAIN Nursing Triage Note: MID-BACK PAIN AFTER FALL FROM 3RD RUNG OF LADDER ONTO DRYWALL SHEETS. DENIES OTHER INJURY/LOC. Nursing Sepsis Screen: No Definite Risk Source of Information: Patient Exam Limitations: No Limitations History of Present Illness Date Seen by Provider: Aug 30, 2019 Time Seen by Provider: 02:41 Initial Comments Here with report of fall earlier today off the third step of the ladder onto the floor. States he landed flat on his back. He was able to get up and complete the job. He took a shower at home and was doing okay but felt some back pain. He laid down in bed and was watching TV and always fine. He had to get up to let the dog out and he got severe spasms in his back. Those have persisted until now. Denies bowel or bladder incontinence. Denies numbness or tingling. Denies weakness in his legs. Has not taken anything for the pain. He does not think he broke anything but did not know today for the spasms. Location: Lumbar Spine, Paraspinous Muscles Timing/Duration: 1-3 Hours Severity: Moderate, Severe Pain/Injury Location: Back Radiation: Buttocks Method of Injury: Fall Modifying Factors: Worse With Movement, Worse With Other (sitting or transitioning from laying to standing) Associated Symptoms: muscle spasms; No fever, No weakness, No numbness in legs/feet, No tingling in legs/feet, No sensory/motor loss; lower back pain; No loss of bladder control, No loss of bowel control Allergies and Home Medications Allergies Coded Allergies: No Known Drug Allergies (Unverified , 11/29/11) Home Medications No Active Prescriptions or Reported Meds Patient Home Medication List Home Medication List Reviewed: Yes Review of Systems Constitutional: see HPI Respiratory: No cough; other (pain takes his breath away sometimes but denies breathing problems specifically.) Cardiovascular: no symptoms reported Gastrointestinal: no symptoms reported Genitourinary: no symptoms reported Musculoskeletal: back pain, muscle pain, muscle stiffness Skin: no symptoms reported Past Gxeyeox-Lreytx-Wbbbgm Hx Past Med/Social Hx: Reviewed Nursing Past Med/Soc Hx Patient Social History Alcohol Use: Rarely Uses Number of Drinks Today: AA Alcohol Beverage of Choice: Beer Recreational Drug Use: Yes Drug of Choice: CANNIBUS Smoking Status: Current Everyday Smoker Type Used: Cigarettes 2nd Hand Smoke Exposure: Yes Recent Foreign Travel: No Contact w/Someone Who Travel: No Recent Infectious Disease Expo: No Recent Hopitalizations: No Physical Abuse: No Sexual Abuse: No Mistreated: No Fear: No Immunizations Up To Date Tetanus Booster (TDap): Less than 5yrs PED Vaccines UTD: Yes Date of Influenza Vaccine: Sep 07, 2017 Seasonal Allergies Seasonal Allergies: Yes Past Medical History Surgeries: Yes Orthopedic Respiratory: No Cardiac: No Heart Murmur Neurological: No Reproductive Disorders: No Sexually Transmitted Disease: No Genitourinary: No Gastrointestinal: No Musculoskeletal: No Arthritis Endocrine: No HEENT: No Cancer: No Psychosocial: No Sleep Difficulties, Suicide Attempts, Depression Integumentary: No Blood Disorders: No Family Medical History Reviewed Nursing Family Hx Physical Exam Vital Signs Vital Signs - First Documented 08/30/19 02:10 Temp 36.7 Pulse 88 Resp 18 B/P (MAP) 124/78 (93) Pulse Ox 99 O2 Delivery Room Air Capillary Refill : Less Than 3 Seconds Height, Weight, BMI Height: 5'10.00" Weight: 150lbs. 9.0oz. 68.911552ne; 22.00 BMI Method:Stated General Appearance: WD/WN, Mild Distress Cardiovascular: Regular Rate, Rhythm, No Murmur Respiratory: Lungs Clear, Normal Breath Sounds Gastrointestinal: Non Tender, Soft Back: Decreased Range of Motion, Muscle Spasm (paraspinous especially lower); No Vertebral Tenderness Extremity: Other (able to walk and stand but has difficulty with transitions) Neurologic/Psychiatric: Alert Skin: Normal Color, Warm/Dry; No Rash; Other (No lesions no lesions) Progress/Results/Core Measures Results/Orders My Orders Orders - JACQUELIN MCCOY MD Hydrocodone/Apap 5/325 Tablet (Lortab 5 (08/30/19 03:00) Ketorolac Injection (Toradol Injection) (08/30/19 02:47) Orphenadrine Injection (Norflex Injectio (08/30/19 02:47) Vital Signs/I&O 08/30/19 02:10 Temp 36.7 Pulse 88 Resp 18 B/P (MAP) 124/78 (93) Pulse Ox 99 O2 Delivery Room Air Blood Pressure Mean: 93 Progress Progress Note : Progress Note Seen and evaluated. Did discuss medical therapy versus medical therapy plus radiographic evaluation. We both agree that we will initiate therapy now on if it's not better in a few days then he can return for further evaluation including radiographical studies. Toradol 60 mg IM, Norflex 60 mg IM and hydrocodone 5/325 one tab by mouth given. Discharged home with return precautions. Patient verbalize understanding instructions and agreement with plan. Departure Impression Primary Impression: Back strain Qualified Codes: S39.012A - Strain of muscle, fascia and tendon of lower back, initial encounter Additional Impression: Muscle spasm of back Disposition: HOME, SELF-CARE Condition: Stable Departure-Patient Inst. Decision time for Depature: 02:59 Referrals: [facility] (PCP/Family) Primary Care Physician Patient Instructions: Muscle Spasms (DC), Lumbar Muscle Strain (DC) Add. Discharge Instructions: All discharge instructions reviewed with patient and/or family. Voiced understanding. You may take ibuprofen 600 mg every 8 hours as needed for pain. You may also take Tylenol/acetaminophen 1000 mg every 8 hours as needed for pain. Drink plenty of fluids. You may use oemk-oro-lxaldut Icy Hot with lidocaine patches, Aspercreme with lidocaine patches, Salonpas with lidocaine patches or similar items to area of concern per package directions.You may use swlh-spx-mtbjcem Icy Hot with lidocaine patches, Aspercreme with lidocaine patches, Salonpas with lidocaine patches for similar items to area of concern per package directions. Follow-up with your Dr. in a few days for recheck. Return for worse pain, weakness, numbness between your legs, difficulty with walking or going to the bathroom or other concerns as needed. Scripts Cyclobenzaprine HCl (Cyclobenzaprine HCl) 10 Mg Tablet 10 MG PO Q8H PRN for SPASMS, #15 TAB 0 Refills Prov: JACQUELIN MCCOY MD 08/30/19 JACQUELIN MCCOY MD Aug 30, 2019 03:01
[2019-08-30] MEDS ORDERED: CYCL10TA9 PO (03:02)
--- OUTSIDE RECORDS SUMMARY | 2019-08-30 22:34 | XMS REPORT ---
Author Author Meng Cordero Doctor Organization [facility] Address Unknown Phone Unavailable Care Team Providers Care Child Psychology Teacher Name Role Phone Migration, Doctor Unavailable Unavailable PROBLEMS Type Condition ICD9-CM Code LHU02-VK Code Onset Dates Condition S tatus SNOMED Code Problem Insomnia, unspecified 780.52 Active 971545633 Problem Unspecified dental caries 521.00 Acti ve 29919881 Problem Routine or child health check V20.2 Active 226801182 Problem Other general medical examination for administrative purpo ses V70.3 Active 96403286 Problem Personal history of allergy to other foods V15.05 Active 830082076 ALLERGIES No Information ENCOUNTERS Encounter Location Date Diagnosis [place] [address] [address] Apr, Encounter for immunization Z23 [place] [address] [address] Aug, [place] [address] [address] Aug, [place] [address] [address] Aug, [place] [address] [address] Aug, [place] [address] [address] 07 Aug, 2015 Screen for STD (sexually transmitted dis ease) Z11.3 ; Exposure to STD Z20.2 and Stress headaches F45.41 [place] [address] [address] 10 Jul, 2015 Cutaneous horn L85.8 [place] [address] [address] 14 Sep, 2014 [place] [address] [place] [id number] [place] [address] Sep, [facility] [address] [facility] [id number] [place] [address] Sep, [facility] [address] [id number] [place] [address] Sep, [facility] [address] [id number] [place] [address] Jun, [facility] [address] [id number] [place] [address] Jun, [facility] [address] [id number] [place] [address] Mar, [facility] [address] [id number] [place] [address] Mar, [facility] [address] [id number] [place] [address] Jan, [facility] [address] [id number] [place] [address] Dec, [facility] [address] [id number] [place] [address] Nov, [facility] [address] [id number] [place] [address] Nov, [facility] [address] [id number] [place] [address] October, [facility] [address] [id number] [place] [address] October, [facility] [address] [id number] [place] [address] October, [facility] [address] [id number] [place] [address] Sep, [facility] [address] [id number] [place] [address] Sep, [facility] [address] [id number] [place] [address] Aug, [facility] [address] [id number] [place] [address] Aug, [facility] [address] [id number] [place] [address] Aug, [facility] [address] [id number] [place] [address] Jul, [facility] [address] [id number] [place] [address] Jul, [facility] [address] [id number] [place] [address] Jul, [facility] [address] [id number] [place] [address] Jul, [facility] [address] [id number] [place] [address] Jul, [facility] [address] [place] [id number] [place] [address] Jun, [facility] [address] [id number] [place] [address] Jun, [facility] [address] [place] [id number] [place] [address] May, [facility] [address] [id number] [place] [address] May, [facility] [address] [place] [id number] [place] [address] Apr, [facility] [address] [id number] [place] [address] Apr, [facility] [address] [id number] [place] [address] Mar, [facility] [address] [id number] [place] [address] Mar, [facility] [address] [id number] [place] [address] Jan, [facility] [address] [id number] [place] [address] Jan, [facility] [address] [id number] [place] [address] Jan, [facility] [address] [id number] [place] [address] Jan, [facility] [address] [id number] [place] [address] Dec, [facility] [address] [id number] [place] [id number] Nov[place] [facility] [address] [id number] [place] [id number] Nov, [facility] [address] [place] [id number] [place] [address] Nov, [facility] [address] [place] [id number] [place] [address] Nov, [facility] [address] [place] [id number] [place] [address] October, [facility] [address] [id number] [place] [address] Sep, [facility] [address] [place] [id number] [place] [address] Aug, [facility] [address] [place] [id number] [place] [address] Aug, [facility] [address] [place] [id number] [place] [address] Aug, [facility] [address] [id number] [place] [address] Aug, [facility] [address] [place] [id number] [place] [address] Aug, [facility] [address] [id number] [place] [address] Jul, [facility] [address] [place] [id number] [place] [address] Jun, [facility] [address] [id number] [place] [address] May, [facility] [address] [id number] [place] [address] May, [facility] [address] [id number] [place] [address] May, [facility] [address] [id number] [place] [address] Apr, [facility] [address] [place] [id number] [place] [address] Mar, [facility] [address] [place] [id number] [place] [address] Mar, [facility] [address] [place] [id number] [place] [address] Mar, [facility] [address] [place] [id number] [place] [address] October, [facility] [address] [place] [id number] [place] [address] Sep, [facility] [address] [id number] [place] [address] Aug, IMMUNIZATIONS No Known Immunizations SOCIAL HISTORY Never Assessed REASON FOR VISIT PLAN OF CARE VITAL SIGNS Height 68 in 2013-10-12 Weight 147 lbs 2013-10-12 Temperature 98 degrees Fahrenheit 2013-10-12 Heart Rate 80 bpm 2013-10-12 Respiratory Rate 24 2013-10-12 Blood pressure systolic 108 mmHg 2013-10-12 Blood pressure diastolic 68 mmHg 2013-10-12 MEDICATIONS Unknown Medications RESULTS No Results PROCEDURES No Known procedures INSTRUCTIONS MEDICATIONS ADMINISTERED No Known Medications MEDICAL (GENERAL) HISTORY Type Description Date Surgical History surgery on right index finger Surgical History surgery on right pinky fracture Hospitalization History surgeries Hospitalization History seizures
--- OUTSIDE RECORDS SUMMARY | 2019-08-30 22:34 | XMS REPORT ---
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 Technology (ONC 15.99.04.3023.Diam.31.00.0.348404) and the National Committee for Test Facility Engineer (NCQA, as an eMeasure certified technology). FOR RECORDS PERTAINING TO PATIENTS WHO ARE OR HAVE BEEN ENROLLED IN A CHEMICAL D EPENDENCY/SUBSTANCE ABUSE PROGRAM, SOME INFORMATION MAY BE OMITTED. This clinica l summary was aggregated from multiple sources. Caution should be exercised in using it in the provision of clinical care. This summary normalizes information from multiple sources, and as a consequence, information in this document may ma terially change the coding, format and clinical context of patient data. In anjana tion, data may be omitted in some cases. CLINICAL DECISIONS SHOULD BE BASED ON T HE PRIMARY CLINICAL RECORDS. [employer] provides no warranty or guara ntee of the accuracy or completeness of information in this document.The followi ng information is based on time limited clinical information UNRECOGNIZED CONTENT PROVIDED BELOW FOR UNRECOGNIZED SECTION MEDICAL (GENERAL) HISTORY Type Description Date Surgical History surgery on right in dex finger Surgical History surgery on right pi nky fracture Hospitalization History surgeries Hospitalization History seizures UNRECOGNIZED CONTENT PROVIDED BELOW FOR UNRECOGNIZED SECTION REASON FOR VISIT [id number]
--- OUTSIDE RECORDS SUMMARY | 2019-08-30 22:34 | XMS REPORT ---
Author Author Meng Cordero Doctor Organization [facility] Address Unknown Phone Unavailable Care Team Providers Care Cnc Service Engineer Name Role Phone Migration, Doctor Unavailable Unavailable PROBLEMS Type Condition ICD9-CM Code [id number] Code Onset Dates Condition S tatus SNOMED Code Problem Insomnia, unspecified 780.52 Active 121299068 Problem Unspecified dental caries 521.00 Acti ve 62853121 Problem Routine or child health check V20.2 Active 863872080 Problem Other general medical examination for administrative purpo ses V70.3 Active 22754109 Problem Personal history of allergy to other foods V15.05 Active 868924232 ALLERGIES No Information ENCOUNTERS Encounter Location Date Diagnosis [place] [address] [address] Aug, [place] [address] [place] [id number] [address] [place] [address] Aug, [place] [address] [address] Aug, [place] [address] [place] [id number] [address] [place] [address] Aug, [place] [address] [place] [id number] [address] [place] [address] Aug, Screen for STD (sexually tra nsmitted disease) Z11.3 ; Exposure to STD Z20.2 and Stress headaches F45.41 [place] [address] [place] [id number] [place] [address] 10 Jul, 2015 Cutaneous horn L85.8 [place] [address] [place] [id number] [address] [place] [address] Sep, [place] [address] [address] Sep, [facility] [address] [id number] [address] [place] [address], [place] [address] Sep, [facility] [address] [id number] [address] [place] [address], [place] [address] Sep, [facility] [address] [id number] [address] [place] [address], [place] [address] Jun, [facility] [address] [id number] [address] [place] [address], [place] [address] Jun, [facility] [address] [id number] [address] [place] [address], [place] [address] Mar, [facility] [address] [id number] [address] [place] [address], [place] [address] Mar, [facility] [address] [id number] [address] [place] [address], [place] [address] Jan, [facility] [address] [id number] [address] [place] [address], [place] [address] Dec, [facility] [address] [id number] [address] [place] [address], [place] [address] Nov, [facility] [address] [id number] [address] [place] [address], [place] [address] Nov, [facility] [address] [id number] [address] [place] [address], [place] [address] October, [facility] [address] [id number] [address] [place] [address], [place] [address] October, [facility] [address] [id number] [address] [place] [address], [place] [address] October, [facility] [address] [id number] [address] [place] [address], [place] [address] Sep, [facility] [address] [id number] [address] [place] [address], [place] [address] Sep, [facility] [address] [id number] [address] [place] [address], [place] [address] Aug, [facility] [address] [id number] [address] [place] [address], [place] [address] Aug, [facility] [address] [id number] [address] [place] [address], [place] [address] Aug, [facility] [address] [id number] [address] [place] [address], [place] [address] Jul, [facility] [address] [id number] [address] [place] [address], [place] [address] Jul, [facility] [address] [id number] [address] [place] [address], [place] [address] Jul, [facility] [address] [id number] [address] [place] [address], [place] [address] Jul, [facility] [address] [id number] [address] [place] [address], [place] [address] Jul, [facility] [address] [id number] [address] [place] [address], [place] [address] Jun, [facility] [address] [id number] [address] [place] [address], [place] [address] Jun, [facility] [address] [id number] [address] [place] [address], [place] [address] May, [facility] [address] [id number] [address] [place] [address], [place] [address] May, [facility] [address] [id number] [address] [place] [address] Apr, [facility] [address] [id number] [address] [place] [address], [place] [address] Apr, [facility] [address] [id number] [address] [place] [address], [place] [address] Mar, [facility] [address] [id number] [address] [place] [address], [place] [address] Mar, [facility] [address] [id number] [address] [place] [address], [place] [address] Jan, [facility] [address] [id number] [address] [place] [address], [place] [address] Jan, [facility] [address] [id number] [address] [place] [address], [place] [address] Jan, [facility] [address] [id number] [address] [place] [address], [place] [address] Jan, [facility] [address] [id number] [address] [place] [address], [place] [address] Dec, [facility] [address] [id number] [address] [place] [id number] Nov, [facility] [address] [id number] [address] [place] [id number] Nov, [facility] [address] [id number] [address] [place] [address], [place] [address] Nov, [facility] [address] [id number] [address] [place] [address], [place] [address] Nov, [facility] [address] [id number] [address] [place] [address], [place] [address] October, [facility] [address] [id number] [address] [place] [address], [place] [address] Sep, [facility] [address] [id number] [address] [place] [address], [place] [address] Aug, [facility] [address] [id number] [address] [place] [address], [place] [address] Aug, [facility] [address] [id number] [address] [place] [address], [place] [address] Aug, [facility] [address] [id number] [address] [place] [address], [place] [address] Aug, [facility] [address] [id number] [address] [address] Aug, [facility] [address] [id number] [address] [place] [address] Jul, [facility] [address] [id number] [address] [place] [address] Jun, [facility] [address] [id number] [address] [place] [address] May, [facility] [address] [id number] [address] [place] [address] May, [facility] [address] [id number] [address] [place] [address] May, [facility] [address] [id number] [address] [place] [address] Apr, [facility] [address] [id number] [address] [place] [address] Mar, [facility] [address] [id number] [address] [place] [address] Mar, [facility] [address] [id number] [address] [place] [address] Mar, [facility] [address] [id number] [address] [place] [address] October, [facility] [address] [id number] [address] [place] [address] Sep, [facility] [address] [id number] [address] [place] [address] Aug, IMMUNIZATIONS No Known Immunizations SOCIAL HISTORY Never Assessed REASON FOR VISIT PLAN OF CARE VITAL SIGNS Height 65.5 in 2011-10-19 Weight 123 lbs 2011-10-19 Heart Rate 76 bpm 2011-10-19 Blood pressure systolic 98 mmHg 2011-10-19 Blood pressure diastolic 62 mmHg 2011-10-19 MEDICATIONS Unknown Medications RESULTS No Results PROCEDURES No Known procedures INSTRUCTIONS MEDICATIONS ADMINISTERED No Known Medications MEDICAL (GENERAL) HISTORY Type Description Date Surgical History surgery on right index finger Surgical History surgery on right pinky fracture Hospitalization History surgeries Hospitalization History seizures
--- OUTSIDE RECORDS SUMMARY | 2019-08-30 22:35 | XMS REPORT ---
Author Author Meng Cordero Doctor Organization [facility] Address Unknown Phone Unavailable Care Team Providers Care Tree Shear Operator Name Role Phone Migration, Doctor Unavailable Unavailable PROBLEMS Type Condition ICD9-CM Code EQX61-DA Code Onset Dates Condition S tatus SNOMED Code Problem Insomnia, unspecified 780.52 Active 594721693 Problem Unspecified dental caries 521.00 Acti ve 46132579 Problem Routine or child health check V20.2 Active 918185928 Problem Other general medical examination for administrative purpo ses V70.3 Active 50933816 Problem Personal history of allergy to other foods V15.05 Active 097130982 ALLERGIES No Information ENCOUNTERS Encounter Location Date Diagnosis [place] [address] [address] Aug, [place] [address] [place] [id number] [address] [place] [address] Aug, [place] [address] [address] Aug, [place] [address] [place] [id number] [address] [place] [address] Aug, [place] [address] [place] [id number] [place] [address] 07 Aug, 2015 Screen for STD (sexually tra nsmitted disease) Z11.3 ; Exposure to STD Z20.2 and Stress headaches F45.41 [place] [address] [place] [id number] [address] [place] [address] 10 Jul, 2015 Cutaneous horn L85.8 [place] [address] [place] [id number] [address] [place] [address] Sep, [place] [address] [address] Sep, [facility] [address] [id number] [address] [place] [address], [place] [address] Sep, [facility] [address] [id number] [address] [place] [address], [place] [address] Sep, [facility] [address] [id number] [address] [place] [address], [place] [address] Jun, [facility] [address] [id number] [address] [place] [address], [place] [address] Jun, [facility] [address] [id number] [address] [place] [address], [place] [address] Mar, [facility] [address] [id number] [address] [place] [address], [place] [address] Mar, [facility] [address] [id number] [address] [place] [address], [place] [address] Jan, [facility] [address] [id number] [address] [place] [address], [place] [address] Dec, [facility] [address] [id number] [address] [place] [address], [place] [address] Nov, [facility] [address] [id number] [address] [place] [address], [place] [address] Nov, [facility] [address] [id number] [address] [place] [address], [place] [address] October, [facility] [address] [id number] [address] [place] [address], [place] [address] October, [facility] [address] [id number] [address] [place] [address], [place] [address] October, [facility] [address] [id number] [address] [place] [address], [place] [address] Sep, [facility] [address] [id number] [address] [place] [address], [place] [address] Sep, [facility] [address] [id number] [address] [place] [address], [place] [address] Aug, [facility] [address] [id number] [address] [place] [address], [place] [address] Aug, [facility] [address] [id number] [address] [place] [address], [place] [address] Aug, [facility] [address] [id number] [address] [place] [address], [place] [address] Jul, [facility] [address] [id number] [address] [place] [address], [place] [address] Jul, [facility] [address] [id number] [address] [place] [address], [place] [address] Jul, [facility] [address] [id number] [address] [place] [address], [place] [address] Jul, [facility] [address] [id number] [address] [place] [address], [place] [address] Jul, [facility] [address] [id number] [address] [place] [address], [place] [address] Jun, [facility] [address] [id number] [address] [place] [address], [place] [address] Jun, [facility] [address] [id number] [address] [place] [address], [place] [address] May, [facility] [address] [id number] [address] [place] [address], [place] [address] May, [facility] [address] [id number] [address] [place] [address] Apr, [facility] [address] [id number] [address] [place] [address], [place] [address] Apr, [facility] [address] [id number] [address] [place] [address], [place] [address] Mar, [facility] [address] [id number] [address] [place] [address], [place] [address] Mar, [facility] [address] [id number] [address] [place] [address], [place] [address] Jan, [facility] [address] [id number] [address] [place] [address], [place] [address] Jan, [facility] [address] [id number] [address] [place] [address], [place] [address] Jan, [facility] [address] [id number] [address] [place] [address], [place] [address] Jan, [facility] [address] [id number] [address] [place] [address], [place] [address] Dec, [facility] [address] [id number] [address] [place] [id number] Nov, [facility] [address] [id number] [address] [place] [id number] Nov, [facility] [address] [id number] [address] [place] [address], [place] [address] Nov, [facility] [address] [id number] [address] [place] [address], [place] [address] Nov, [facility] [address] [id number] [address] [place] [address], [place] [address] October, [facility] [address] [id number] [address] [place] [address], [place] [address] Sep, [facility] [address] [id number] [address] [place] [address], [place] [address] Aug, [facility] [address] [id number] [address] [place] [address], [place] [address] Aug, [facility] [address] [id number] [address] [place] [address], [place] [address] Aug, [facility] [address] [id number] [address] [place] [address], [place] [address] Aug, [facility] [address] [id number] [place] [address] Aug, [facility] [address] [id number] [address] [place] [address] Jul, [facility] [address] [id number] [address] [place] [address] Jun, [facility] [address] [id number] [address] [place] [address] May, [facility] [address] [id number] [address] [place] [address] May, [facility] [address] [id number] [address] [place] [address] May, [facility] [address] [id number] [address] [place] [address] Apr, [facility] [address] [id number] [address] [place] [address] Mar, [facility] [address] [id number] [address] [place] [address] Mar, [facility] [address] [id number] [address] [place] [address] Mar, [facility] [address] [id number] [address] [place] [address] October, [facility] [address] [id number] [address] [place] [address] Sep, [facility] [address] [id number] [address] [place] [phone] Aug, IMMUNIZATIONS No Known Immunizations SOCIAL HISTORY Never Assessed REASON FOR VISIT [facility] [place] PLAN OF CARE VITAL SIGNS MEDICATIONS Unknown Medications RESULTS No Results PROCEDURES No Known procedures INSTRUCTIONS MEDICATIONS ADMINISTERED No Known Medications MEDICAL (GENERAL) HISTORY Type Description Date Surgical History surgery on right index finger Surgical History surgery on right pinky fracture Hospitalization History surgeries Hospitalization History seizures
--- OUTSIDE RECORDS SUMMARY | 2019-08-30 22:35 | XMS REPORT ---
Author Author Meng Cordero Doctor Organization [facility] Address Unknown Phone Unavailable Care Team Providers Care Bow Maker Machine Tender Name Role Phone Migration, Doctor Unavailable Unavailable PROBLEMS Type Condition ICD9-CM Code MUQ23-HP Code Onset Dates Condition S tatus SNOMED Code Problem Insomnia, unspecified 780.52 Active 089650382 Problem Unspecified dental caries 521.00 Acti ve 70932558 Problem Routine or child health check V20.2 Active 831631754 Problem Other general medical examination for administrative purpo ses V70.3 Active 76852511 Problem Personal history of allergy to other foods V15.05 Active 382943261 ALLERGIES Substance Reaction Event Type Date Status Hand Wash Mill Operator Unknown Non Drug Allergy Sep, Active ENCOUNTERS Encounter Location Date Diagnosis [place] [address] [place] [id number] [place] [id number] Aug, [place] [address] [place] [id number] [address] [place] [id number] Aug, [place] [address] [place] [id number] [place] [address] Aug, [place] [address] [place] [id number] [place] [phone] Aug, [place] [address] [place] [id number] [place] [address] Aug, Screen for STD (sexually tra nsmitted disease) Z11.3 ; Exposure to STD Z20.2 and Stress headaches F45.41 [place] [address] [place] [id number] [address] [place] [id number] 10 Jul, 2015 Cutaneous horn L85.8 [place] [address] [place] [id number] [address] [place] [id number] Sep, [facility] [address] [id number] [address] [place] [address], [place] [address] Sep, [facility] [address] [id number] [address] [place] [address], [place] [address] Sep, [facility] [address] [id number] [address] [place] [address], [place] [address] Sep, [facility] [address] [id number] [address] [place] [address], [place] [address] Jun, [facility] [address] [id number] [address] [place] [address], [place] [address] Jun, [facility] [address] [id number] [address] [place] [address], [place] [address] Mar, [facility] [address] [id number] [address] [place] [address], [place] [address] Mar, [facility] [address] [id number] [address] [place] [address], [place] [address] Jan, [facility] [address] [id number] [address] [place] [address], [place] [address] Dec, [facility] [address] [id number] [address] [place] [address], [place] [address] Nov, [facility] [address] [id number] [address] [place] [address], [place] [address] Nov, [facility] [address] [id number] [address] [place] [address], [place] [address] October, [facility] [address] [id number] [address] [place] [address], [place] [address] October, [facility] [address] [id number] [address] [place] [address], [place] [address] October, [facility] [address] [id number] [address] [place] [address], [place] [address] Sep, [facility] [address] [id number] [address] [place] [address], [place] [address] Sep, [facility] [address] [id number] [address] [place] [address], [place] [address] Aug, [facility] [address] [id number] [address] [place] [address], [place] [address] Aug, [facility] [address] [id number] [address] [place] [address], [place] [address] Aug, [facility] [address] [id number] [address] [place] [address], [place] [address] Jul, [facility] [address] [id number] [address] [place] [address], [place] [address] Jul, [facility] [address] [id number] [address] [place] [address], [place] [address] Jul, [facility] [address] [id number] [address] [place] [address], [place] [address] Jul, [facility] [address] [id number] [address] [place] [address], [place] [address] Jul, [facility] [address] [id number] [address] [place] [address], [place] [address] Jun, [facility] [address] [id number] [address] [place] [address], [place] [address] Jun, [facility] [address] [id number] [address] [place] [address], [place] [address] May, [facility] [address] [id number] [address] [place] [address], [place] [address] May, [facility] [address] [id number] [address] [place] [address], [place] [address] Apr, [facility] [address] [id number] [address] [place] [address], [place] [address] Apr, [facility] [address] [id number] [address] [place] [address], [place] [address] 08 Mar, 2012 [facility] [address] [id number] [address] [place] [address], [place] [address] Mar, [facility] [address] [id number] [address] [place] [address], [place] [address] Jan, [facility] [address] [id number] [address] [place] [address], [place] [address] Jan, [facility] [address] [id number] [address] [place] [address], [place] [address] Jan, [facility] [address] [id number] [address] [place] [address], [place] [address] Jan, [facility] [address] [id number] [address] [place] [address], [place] [address] Dec, [facility] [address] [id number] [address] [place] [id number] Nov, [facility] [address] [id number] [address] [place] [id number] Nov, [facility] [address] [id number] [address] [place] [address], [place] [address] Nov, [facility] [address] [id number] [address] [place] [address], [place] [address] Nov, [facility] [address] [id number] [address] [place] [address], [place] [address] October, [facility] [address] [id number] [address] [place] [address], [place] [address] Sep, [facility] [address] [id number] [address] [place] [address], [place] [address] Aug, [facility] [address] [id number] [address] [place] [address], [place] [address] Aug, [facility] [address] [id number] [address] [place] [address], [place] [address] Aug, [facility] [address] [id number] [address] [place] [address], [place] [address] Aug, [facility] [address] [id number] [address] [place] [address] Aug, [facility] [address] [id number] [address] [place] [address] Jul, [facility] [address] [id number] [address] [place] [address] Jun, [facility] [address] [id number] [address] [place] [address] May, [facility] [address] [id number] [address] [place] [address] May, [facility] [address] [id number] [address] [place] [address] May, [facility] [address] [id number] [address] [place] [address] Apr, [facility] [address] [id number] [address] [place] [address] Mar, [facility] [address] [id number] [address] [place] [address] Mar, [facility] [address] [id number] [address] [place] [id number] Mar, [facility] [address] [id number] [address] [place] [address] October, [facility] [address] [id number] [address] [place] [address] Sep, [facility] [address] [id number] [address] [place] [phone] Aug, IMMUNIZATIONS No Known Immunizations SOCIAL HISTORY Never Assessed REASON FOR VISIT EMR-[facility] PLAN OF CARE VITAL SIGNS MEDICATIONS Unknown Medications RESULTS No Results PROCEDURES No Known procedures INSTRUCTIONS MEDICATIONS ADMINISTERED No Known Medications MEDICAL (GENERAL) HISTORY Type Description Date Surgical History surgery on right index finger Surgical History surgery on right pinky fracture Hospitalization History surgeries Hospitalization History seizures
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
--- OUTSIDE RECORDS SUMMARY | 2019-08-30 22:35 | XMS REPORT ---
Author Author Meng Cordero Doctor Organization [facility] Address Unknown Phone Unavailable Care Team Providers Care Student Services Vice President Name Role Phone Migration, Doctor Unavailable Unavailable PROBLEMS Type Condition ICD9-CM Code LGS26-VS Code Onset Dates Condition S tatus SNOMED Code Problem Insomnia, unspecified 780.52 Active 704186943 Problem Unspecified dental caries 521.00 Acti ve 14798752 Problem Routine or child health check V20.2 Active 760778036 Problem Other general medical examination for administrative purpo ses V70.3 Active 60996081 Problem Personal history of allergy to other foods V15.05 Active 859194144 ALLERGIES No Information ENCOUNTERS Encounter Location Date Diagnosis [place] [address] [address] Aug, [place] [address] [place] [id number] [address] [place] [address] Aug, [place] [address] [address] Aug, [place] [address] [place] [id number] [address] [place] [address] Aug, [place] [address] [place] [id number] [address] [place] [phone] Aug, Screen for STD (sexually tra nsmitted disease) Z11.3 ; Exposure to STD Z20.2 and Stress headaches F45.41 [place] [address] [place] [id number] [address] [place] [address] 10 Jul, 2015 Cutaneous horn L85.8 [place] [address] [address] [place] [id number] [address] [place] [address] Sep, [place] [address] [address] Sep, [facility] [address] [id number] [address] [place] [address], [place] [address] Sep, [facility] [address] [id number] [address] [place] [address], [place] [address] Sep, [facility] [address] [id number] [address] [place] [address], [place] [address] Jun, [facility] [address] [id number] [address] [place] [address], [place] [address] Jun, [facility] [address] [id number] [address] [place] [address], [place] [address] Mar, [facility] [address] [id number] [address] [place] [address], [place] [address] Mar, [facility] [address] [id number] [address] [place] [address], [place] [address] Jan, [facility] [address] [id number] [address] [place] [address], [place] [address] Dec, [facility] [address] [id number] [address] [place] [address], [place] [address] Nov, [facility] [address] [id number] [address] [place] [address], [place] [address] Nov, [facility] [address] [id number] [address] [place] [address], [place] [address] October, [facility] [address] [id number] [address] [place] [address], [place] [address] October, [facility] [address] [id number] [address] [place] [address], [place] [address] October, [facility] [address] [id number] [address] [place] [address], [place] [address] Sep, [facility] [address] [id number] [address] [place] [address], [place] [address] Sep, [facility] [address] [id number] [address] [place] [address], [place] [address] Aug, [facility] [address] [id number] [address] [place] [address], [place] [address] Aug, [facility] [address] [id number] [address] [place] [address], [place] [address] Aug, [facility] [address] [id number] [address] [place] [address], [place] [address] Jul, [facility] [address] [id number] [address] [place] [address], [place] [address] Jul, [facility] [address] [id number] [address] [place] [address], [place] [address] Jul, [facility] [address] [id number] [address] [place] [address], [place] [address] Jul, [facility] [address] [id number] [address] [place] [address], [place] [address] Jul, [facility] [address] [id number] [address] [place] [address], [place] [address] Jun, [facility] [address] [id number] [address] [place] [address], [place] [address] Jun, [facility] [address] [id number] [address] [place] [address], [place] [address] May, [facility] [address] [id number] [address] [place] [address], [place] [address] May, [facility] [address] [id number] [address] [place] [address] Apr, [facility] [address] [id number] [address] [place] [address], [place] [address] Apr, [facility] [address] [id number] [address] [place] [address], [place] [address] Mar, [facility] [address] [id number] [address] [place] [address], [place] [address] Mar, [facility] [address] [id number] [address] [place] [address], [place] [address] Jan, [facility] [address] [id number] [address] [place] [address], [place] [address] Jan, [facility] [address] [id number] [address] [place] [address], [place] [address] Jan, [facility] [address] [id number] [address] [place] [address], [place] [address] Jan, [facility] [address] [id number] [address] [place] [address], [place] [address] Dec, [facility] [address] [id number] [address] [place] [id number] Nov, [facility] [address] [id number] [address] [place] [id number] Nov, [facility] [address] [id number] [address] [place] [address], [place] [address] Nov, [facility] [address] [id number] [address] [place] [address], [place] [address] Nov, [facility] [address] [id number] [address] [place] [address], [place] [address] October, [facility] [address] [id number] [address] [place] [address], [place] [address] Sep, [facility] [address] [id number] [address] [place] [address], [place] [address] Aug, [facility] [address] [id number] [address] [place] [address], [place] [address] Aug, [facility] [address] [id number] [address] [place] [address], [place] [address] Aug, [facility] [address] [id number] [address] [place] [address], [place] [address] Aug, [facility] [address] [id number] [place] [address] Aug, [facility] [address] [id number] [address] [place] [address] Jul, [facility] [address] [id number] [address] [place] [address] Jun, [facility] [address] [id number] [address] [place] [address] May, [facility] [address] [id number] [address] [place] [address] May, [facility] [address] [id number] [address] [place] [address] May, [facility] [address] [id number] [address] [place] [address] Apr, [facility] [address] [id number] [address] [place] [address] Mar, [facility] [address] [id number] [address] [place] [address] Mar, [facility] [address] [id number] [address] [place] [address] Mar, [facility] [address] [id number] [address] [place] [address] October, [facility] [address] [id number] [address] [place] [address] Sep, [facility] [address] [id number] [address] [place] [address] Aug, IMMUNIZATIONS No Known Immunizations SOCIAL HISTORY Never Assessed REASON FOR VISIT PLAN OF CARE VITAL SIGNS MEDICATIONS Unknown Medications RESULTS No Results PROCEDURES No Known procedures INSTRUCTIONS MEDICATIONS ADMINISTERED No Known Medications MEDICAL (GENERAL) HISTORY Type Description Date Surgical History surgery on right index finger Surgical History surgery on right pinky fracture Hospitalization History surgeries Hospitalization History seizures
== END 2019-08-30 03:11 | disposition home or self-care (01) ==
LOC: EDUNIT# 01:58 → ER 01:59
DX: S39.012A Strain of muscle, fascia and tendon of lower back, initial encounter (principal); F17.210 Nicotine dependence, cigarettes, uncomplicated; W10.9XXA Fall (on) (from) unspecified stairs and steps, initial encounter
CPT/HCPCS: 99284

== ENCOUNTER 2020-10-04 08:45 | Emergency (ER) | payer SELFPAY ==
[~2020-10-04] VITALS: Ht 177 cm; Wt 70.8 kg
[2020-10-04 08:45] VITALS: BP 130/80
[~2020-10-04 08:45] MED LIST changes: +CYCL10TA9 PO
--- NOTE | 2020-10-04 09:06 | ED Integumentary General ---
General Stated Complaint: RED STREAK DOWN L HIP/LEG History of Present Illness Date Seen by Provider: Oct 04, 2020 Time Seen by Provider: 08:50 Initial Comments Patient is a 25-year-old male who presents to the emergency department today with a chief complaint of swelling in his left groin with redness increasing over the course of the last 24 hours down into the medial thigh. Patient states his symptoms started with a very small red spot on Saturday. He states yesterday he went to pending sale to [facility] and was given a prescription for some antibiotics. He is only taken 1 dose of the antibiotics. He states it made his stomach a little bit upset so he did not take it a second time. He denies any fevers, chills, nausea vomiting or diarrhea. He denies any penile discharge or concerns for sexually transmitted infection. No swelling or discomfort in the right groin. Patient states when he woke up this morning he had difficulty bearing weight on the left leg and states that he noticed that there was a significant amount of increased swelling and pain with the redness is spreading down his thigh this morning. All other review of systems reviewed and negative except as stated above. Timing/Duration: yesterday Severity: moderate Location: genitalia Possible Cause: no cause identified Associated Symptoms: swelling/mass/lumps Allergies and Home Medications Allergies Coded Allergies: No Known Drug Allergies (Unverified , 11/29/11) Home Medications Clindamycin HCl 300 Mg Capsule, 300 MG PO QID Prescribed by: DAVID CLEMENTE on 10/04/20 0909 Cyclobenzaprine HCl 10 Mg Tablet, 10 MG PO Q8H PRN for SPASMS Prescribed by: JACQUELIN MCCOY on 08/30/19 0302 Patient Home Medication List Home Medication List Reviewed: Yes Review of Systems Review of Systems Constitutional: see HPI EENTM: no symptoms reported Respiratory: no symptoms reported Cardiovascular: no symptoms reported Gastrointestinal: no symptoms reported Genitourinary: no symptoms reported Musculoskeletal: other (left leg discomfort) Skin: other (swelling groin and redness) All Other Systems Reviewed Negative Unless Noted: Yes Past Wrtejmu-Ckrbwx-Anckdt Hx Patient Social History Alcohol Beverage of Choice: Beer Drug of Choice: CANNIBUS Type Used: Cigarettes 2nd Hand Smoke Exposure: Yes Recent Hopitalizations: No Immunizations Up To Date Tetanus Booster (TDap): Less than 5yrs PED Vaccines UTD: Yes Date of Influenza Vaccine: Sep 07, 2017 Seasonal Allergies Seasonal Allergies: Yes Past Medical History Surgeries: Yes Orthopedic Respiratory: No Cardiac: No Heart Murmur Neurological: No Reproductive Disorders: No Sexually Transmitted Disease: No Genitourinary: No Gastrointestinal: No Musculoskeletal: No Arthritis Endocrine: No HEENT: No Cancer: No Psychosocial: No Sleep Difficulties, Suicide Attempts, Depression Integumentary: No Blood Disorders: No Physical Exam Vital Signs Vital Signs - First Documented 10/04/20 08:45 Temp 36.5 Pulse 91 Resp 18 B/P (MAP) 130/80 (97) Pulse Ox 99 Capillary Refill : General Appearance: WD/WN, no apparent distress Neck: full range of motion Cardiovascular: regular rate, rhythm Respiratory: lungs clear, normal breath sounds, no respiratory distress, no accessory muscle use Gastrointestinal: non tender, soft Extremities: normal range of motion, non-tender Neurologic/Psychiatric: alert, normal mood/affect, oriented x 3 Skin: other (Large area measuring in excess of 20 cm to the left thigh, enlarged and indurated lymph nodes in the left groin; no palpable abscess or fluctuance. No open wounds or drainage. Lymph nodes in the left groin are very tender to palpation. No palpable lymph nodes in the right groin. Area of erythema is marked with a skin marker) Skin Problem Character: erythema Progress/Results/Core Measures Results/Orders Vital Signs/I&O 10/04/20 08:45 Temp 36.5 Pulse 91 Resp 18 B/P (MAP) 130/80 (97) Pulse Ox 99 Departure Impression Primary Impression: Cellulitis of left thigh Disposition: 01 HOME, SELF-CARE Condition: Stable Departure-Patient Inst. Decision time for Depature: 09:04 Referrals: [facility] (PCP/Family) Primary Care Physician Patient Instructions: Cellulitis (Skin Infection), Adult ED Add. Discharge Instructions: Continue the Bactrim and add the clindamycin antibiotic to the regimen for the next week and a half. You may take an ekwt-dlu-twcbeqn probiotic such as Culturelle while you are on the antibiotics to help protect your gut. These antibiotics together may make you a little bit nauseous. Always eat when you take them. Keep the area clean and dry. Wash frequently. Come back to the emergency room for recheck tomorrow. Come back sooner if you develop high fever or have worsening redness pain or swelling or any other emergent concerning symptoms. You can take jthj-lgn-bfsqgbt ibuprofen 3 tablets which is 600 mg 3 times a day with food for pain. Scripts Clindamycin HCl (Clindamycin HCl) 300 Mg Capsule 300 MG PO QID for 7 Days, #40 CAP Prov: DAVID CLEMENTE MD 10/04/20 Work/School Note: Work Release Form Date Seen in the Emergency Department: Oct 04, 2020 Return to Work: Oct 06, 2020 Copy Copies To 1: ROBIN SNOW KATHRYN M MD Oct 04, 2020 09:06
[2020-10-04] MEDS ORDERED: CLIN300C12 PO (09:09)
== END 2020-10-04 09:18 | disposition home or self-care (01) ==
LOC: EDUNIT# 08:45 → ER 08:47
DX: L03.116 Cellulitis of left lower limb (principal); Z77.22 Contact with and (suspected) exposure to environmental tobacco smoke (acute) (chronic)
CPT/HCPCS: 99282

== ENCOUNTER 2020-10-05 09:53 | Emergency (ER) | payer SELFPAY ==
[~2020-10-05] VITALS: Ht 172 cm; Wt 63.0 kg
[~2020-10-05 09:53] MED LIST changes: +CLIN300C12 PO
--- NOTE | 2020-10-05 10:29 | ED Integumentary General ---
General Chief Complaint: Skin/Wound Problems Stated Complaint: RED STREAK L LEG Nursing Triage Note: PT AMB TO ROOM 8 PT HERE FOR RECHECK OF WOUND ON L GROIN. PT WOUND DECREASE IN REDDNESS AND WARMTH. CONT TO HAVE PAIN 8/10, AREA NEAR GROIN SL LARGER FIRM AREA NOTED. PT HAS TAKEN 3 CLINDAMYCIN AND 2 BACTRIM DS SINCE YESTERDAY. Source: patient Exam Limitations: no limitations (ORLY GALLARDO MED STUDENT) History of Present Illness Date Seen by Provider: Oct 05, 2020 Time Seen by Provider: 10:15 Initial Comments Pt is a 25yo male who presents to the ED complaining of worsening pain and swelling in his left groin. He was seen here yesterday for this, diagnosed with cellulitis and given bactrim and clindamycin. He states that this morning he noticed worsening swelling and burning pain in the area. Rates pain as 8/10. He has taken 3 clindamycin and 2 bactrim since leaving here yesterday. Denies fever, chills, n/v or any urinary symptoms or discharge. Timing/Duration: yesterday Severity: moderate Location: extremities (L groin) Associated Symptoms: rash, swelling/mass/lumps (ORLY GALLARDO MED STUDENT) Allergies and Home Medications Allergies Coded Allergies: No Known Drug Allergies (Unverified , 11/29/11) Home Medications Clindamycin HCl 300 Mg Capsule, 300 MG PO QID Prescribed by: DAVID CLEMENTE on 10/04/20 0909 Cyclobenzaprine HCl 10 Mg Tablet, 10 MG PO Q8H PRN for SPASMS Prescribed by: JACQUELIN MCCOY on 08/30/19 0302 Patient Home Medication List Home Medication List Reviewed: Yes (CATHI MANDUJANO APRN) Review of Systems Review of Systems Constitutional: No chills, No fever EENTM: no symptoms reported Respiratory: No cough, No short of breath Cardiovascular: No chest pain Gastrointestinal: No nausea, No vomiting Genitourinary: No discharge, No dysuria Musculoskeletal: no symptoms reported Skin: change in color (redness), lumps (L groin) Psychiatric/Neurological: No Symptoms Reported Endocrine: No Symptoms Reported Hematologic/Lymphatic: Swollen Glands (L groin) (ORLY GALLARDO MED STUDENT) Past Ggjsssm-Ruprpc-Zxnqnu Hx Patient Social History Alcohol Use: Denies Use Number of Drinks Today: AA Alcohol Beverage of Choice: Beer Drug of Choice: CANNIBUS Smoking Status: Current Everyday Smoker Type Used: Cigarettes 2nd Hand Smoke Exposure: Yes Recent Infectious Disease Expo: No Recent Hopitalizations: No (ORLY GALLARDO MED STUDENT) Immunizations Up To Date Tetanus Booster (TDap): Less than 5yrs PED Vaccines UTD: Yes Date of Influenza Vaccine: Sep 07, 2017 (ORLY GALLARDO MED STUDENT) Seasonal Allergies Seasonal Allergies: Yes (ORLY GALLARDO MED STUDENT) Past Medical History Surgeries: Yes Orthopedic Respiratory: No Cardiac: No Heart Murmur Neurological: No Reproductive Disorders: No Sexually Transmitted Disease: No Genitourinary: No Gastrointestinal: No Musculoskeletal: No Arthritis Endocrine: No HEENT: No Cancer: No Psychosocial: No Sleep Difficulties, Suicide Attempts, Depression Integumentary: No Blood Disorders: No (ORLY GALLARDO MED STUDENT) Physical Exam Vital Signs Vital Signs - First Documented 10/05/20 10:09 Temp 36.8 Pulse 84 Resp 18 B/P (MAP) 130/73 (92) Pulse Ox 100 (CATHI MANDUJANO APRN) Vital Signs Capillary Refill : Less Than 3 Seconds (ORLY GALLARDO MED STUDENT) General Appearance: WD/WN, no apparent distress, other (walks with a limp due to pain in L groin) HEENT: PERRL/EOMI Neck: non-tender, full range of motion, supple Cardiovascular: regular rate, rhythm, no murmur Respiratory: lungs clear, no respiratory distress, no accessory muscle use Gastrointestinal: normal bowel sounds, non tender, soft Extremities: no pedal edema, no calf tenderness Neurologic/Psychiatric: no motor/sensory deficits, alert, normal mood/affect, oriented x 3 Skin: warm/dry, other (erythema to L groin with firm, tender indurated area. Erythema appears to have receded from marked lines from yesterday;) (ORLY GALLARDO MED STUDENT) Procedures/Interventions I&D : Blade Size: 11 Packing/Drain: Idoform 06/20 (CATHI MANDUJANO APRN) Progress/Results/Core Measures Results/Orders Lab Results Laboratory Tests Test 10/05/20 12:00 Range/Units White Blood Count 10.8 4.3-11.0 10^3/uL Red Blood Count 4.57 4.30-5.52 10^6/uL Hemoglobin 14.6 13.3-17.7 g/dL Hematocrit 42 40-54 % Mean Corpuscular Volume 92 80-99 fL Mean Corpuscular Hemoglobin 32 25-34 pg Mean Corpuscular Hemoglobin Concent 35 32-36 g/dL Red Cell Distribution Width 11.2 10.0-14.5 % Platelet Count 226 130-400 10^3/uL Mean Platelet Volume 9.9 9.0-12.2 fL Immature Granulocyte % (Auto) 0 % Neutrophils (%) (Auto) 79 H 42-75 % Lymphocytes (%) (Auto) 13 12-44 % Monocytes (%) (Auto) 7 0-12 % Eosinophils (%) (Auto) 1 0-10 % Basophils (%) (Auto) 1 0-10 % Neutrophils # (Auto) 8.5 H 1.8-7.8 10^3/uL Lymphocytes # (Auto) 1.4 1.0-4.0 10^3/uL Monocytes # (Auto) 0.8 0.0-1.0 10^3/uL Eosinophils # (Auto) 0.1 0.0-0.3 10^3/uL Basophils # (Auto) 0.1 0.0-0.1 10^3/uL Immature Granulocyte # (Auto) 0.0 0.0-0.1 10^3/uL (CATHI MANDUJANO APRN) My Orders Orders - CATHI MANDUJANO APRN Wound Culture (10/05/20 11:53) Rx-Hydrocodone/Apap 5-325 Mg (Rx-Vicodin (10/05/20 12:00) Cbc With Automated Diff (10/05/20 11:53) (CATHI MANDUJANO APRN) Medications Given in ED Current Medications Medications Dose Ordered Sig/Jena Route Start Time Stop Time Status Last Admin Dose Admin Acetaminophen/ Hydrocodone Bitart 1 ea Q4H PRN PO 10/05/20 12:00 10/05/20 12:24 DC 10/05/20 12:20 1 EA (CATHI MANDUJANO APRN) Vital Signs/I&O 10/05/20 10/05/20 10:09 12:21 Temp 36.8 Pulse 84 80 Resp 18 18 B/P (MAP) 130/73 (92) 122/62 (92) Pulse Ox 100 100 (CATHI MANDUJANO APRN) Blood Pressure Mean: 92 Departure Communication (Admissions) I seen the patient as well and agree with the plan. We will check a CBC. He is on clindamycin and Bactrim. Bedside ultrasound reveals some loculated fluid in the left inguinal region. We did some local anesthesia with lidocaine without epinephrine. Then made an incision with 11 blade scalpel. Moderate to large amount of purulent material expressed. Culture collected and sent to lab. Loculations broken up with curved hemostats. Irrigated with chlorhexidine/saline solution. Packed with quarter inch iodoform packing and covered with gauze. We will see him back tomorrow for recheck. (CATHI MANDUJANO APRN) Impression Primary Impression: Abscess Disposition: 01 HOME, SELF-CARE Condition: Stable Departure-Patient Inst. Decision time for Depature: 11:59 (CATHI MANDUJANO APRN) Referrals: [facility] (PCP/Family) Primary Care Physician Patient Instructions: Abscess Incision and Drainage (DC) Add. Discharge Instructions: 1. Change the gauze dressing as needed. Return to ER tomorrow for wound check. Continue the antibiotics. Take the pain medication as directed. All discharge instructions reviewed with patient and/or family. Voiced understanding. ORLY GALLARDO,MED STUDENT Oct 05, 2020 10:29 CATHI MANDUJANO APRN Oct 05, 2020 12:00
[2020-10-05] MEDS ORDERED: RX-HYDROCODONE/APAP 5/325 MG #4 TAB PK PO PRN (12:00)
[2020-10-05 12:09] LABS: BASOPHILS # (AUTO) 0.1 10^3/uL (0.0-0.1); BASOPHILS % (AUTO) 1 % (0-10); EOSINOPHILS # (AUTO) 0.1 10^3/uL (0.0-0.3); EOSINOPHILS % (AUTO) 1 % (0-10); HEMATOCRIT 42 % (40-54); HEMOGLOBIN 14.6 g/dL (13.3-17.7); LYMPHOCYTES # (AUTO) 1.4 10^3/uL (1.0-4.0); LYMPHOCYTES % (AUTO) 13 % (12-44); MEAN CORPUSCULAR HEMOGLOBIN 32 pg (25-34); MEAN CORPUSCULAR HGB CONC 35 g/dL (32-36); MEAN CORPUSCULAR VOLUME 92 fL (80-99); MEAN PLATELET VOLUME 9.9 fL (9.0-12.2); MONOCYTES # (AUTO) 0.8 10^3/uL (0.0-1.0); MONOCYTES % (AUTO) 7 % (0-12); NEUTROPHILS # (AUTO) 8.5 10^3/uL (1.8-7.8); NEUTROPHILS % (AUTO) 79 % (42-75); PLATELET COUNT 226 10^3/uL (130-400); WHITE BLOOD COUNT 10.8 10^3/uL (4.3-11.0)
[2020-10-05 12:21] VITALS: BP 122/62
== END 2020-10-05 12:24 | disposition home or self-care (01) ==
LOC: EDUNIT# 09:53 → ER 09:57
DX: L02.214 Cutaneous abscess of groin (principal); F17.210 Nicotine dependence, cigarettes, uncomplicated
CPT/HCPCS: 10060; 36415; 85025; 87070; 87077; 87186; 87205

== ENCOUNTER 2020-10-06 11:01 | Emergency (ER) | payer SELFPAY ==
[~2020-10-06] VITALS: Ht 155.4 cm; Wt 63.5 kg
[2020-10-06 11:29] VITALS: BP 119/57
--- NOTE | 2020-10-06 11:41 | ED Suture Removal/Wound Check ---
Suture/Wound Re-check General Appearance: WD/WN, no apparent distress Neuro/Tendon: normal sensation, normal motor functions Skin Exam: normal color, warm/dry Physical Exam Vital Signs Vital Signs - First Documented 10/06/20 11:29 Temp 36.7 Pulse 79 Resp 20 Pulse Ox 99 Capillary Refill : General Appearance: WD/WN, no apparent distress Neck: non-tender, full range of motion Respiratory: normal breath sounds, no respiratory distress, no accessory muscle use Neurologic/Psychiatric: alert, normal mood/affect, oriented x 3 Skin: normal color, warm/dry Skin Problem Character: abscess, other (The left inguinal abscess is much less red and swollen today. The erythema has receded from the borders drawn with skin pen 48 hours ago. He reports significant subjective improvement in pain and mobility. No fevers or chills.) Departure Impression Primary Impression: Abscess Disposition: 01 HOME, SELF-CARE Condition: Stable Departure-Patient Inst. Decision time for Depature: 11:41 Referrals: [facility] ([place]) Primary Care Physician Patient Instructions: Wound Care (DC) Add. Discharge Instructions: 1. Warm compresses to the area. Continue antibiotics. Return to ER for any worsening. All discharge instructions reviewed with patient and/or family. Voiced understanding. Work/School Note: Work Release Form Date Seen in the Emergency Department: Oct 06, 2020 Return to Work: Oct 07, 2020 Other Restrictions Listed Below: Light work until 08/12. CATHI MANDUJANO APRN Oct 06, 2020 11:41
== END 2020-10-06 11:44 | disposition home or self-care (01) ==
LOC: EDUNIT# 11:01 → ER 11:04
DX: Z48.00 Encounter for change or removal of nonsurgical wound dressing (principal)

== ENCOUNTER 2020-12-20 11:21 | Emergency (ER) | payer SELFPAY ==
[~2020-12-20] VITALS: Ht 177 cm; Wt 63.0 kg
[2020-12-20] MEDS ORDERED: MUPI15CR11 TP (12:20)
[2020-12-20] MEDS ORDERED: SULF1TAB35 PO (12:20)
--- NOTE | 2020-12-20 12:21 | ED Integumentary General ---
General Chief Complaint: Skin/Wound Problems Stated Complaint: L KNEE CYST History of Present Illness Date Seen by Provider: Dec 20, 2020 Time Seen by Provider: 12:09 Initial Comments This is a well-appearing 25-year-old male who presents to the ER with complaints of reddened area on his left upper thigh x3 days. States that it started out as a small red pimple and has now become more red and swollen. States that his child has history of MRSA and he had a cyst removed and believes that it was positive for MRSA as well. This is a well-appearing no fever, chills, nausea, vomiting. States that he was able to get some thick greenish discharge from site earlier today, then wiped with alcohol pad. Allergies and Home Medications Allergies Coded Allergies: No Known Drug Allergies (Unverified , 11/29/11) Home Medications Clindamycin HCl 300 Mg Capsule, 300 MG PO QID Prescribed by: DAVID CLEMENTE on 10/04/20 0909 Cyclobenzaprine HCl 10 Mg Tablet, 10 MG PO Q8H PRN for SPASMS Prescribed by: JACQUELIN MCCOY on 08/30/19 0302 Mupirocin Calcium 15 Gm Cream..g., 1 APPLIC TP BID Prescribed by: SARAH MOSES on 12/20/20 1220 Sulfamethoxazole/Trimethoprim 1 Each Tablet, 1 EACH PO BID Prescribed by: SARAH MOSES on 12/20/20 1220 Patient Home Medication List Home Medication List Reviewed: Yes Review of Systems Review of Systems Constitutional: no symptoms reported EENTM: no symptoms reported Respiratory: no symptoms reported Cardiovascular: no symptoms reported Gastrointestinal: no symptoms reported Genitourinary: no symptoms reported Musculoskeletal: no symptoms reported Skin: see HPI Psychiatric/Neurological: No Symptoms Reported Past Vuziuhs-Qaawhr-Khivlh Hx Immunizations Up To Date Tetanus Booster (TDap): Less than 5yrs PED Vaccines UTD: Yes Seasonal Allergies Seasonal Allergies: Yes Past Medical History Surgeries: Yes Orthopedic Respiratory: No Cardiac: No Heart Murmur Neurological: No Reproductive Disorders: No Sexually Transmitted Disease: No Genitourinary: No Gastrointestinal: No Musculoskeletal: No Arthritis Endocrine: No HEENT: No Cancer: No Psychosocial: No Sleep Difficulties, Suicide Attempts, Depression Integumentary: No Blood Disorders: No Physical Exam Vital Signs Vital Signs - First Documented 12/20/20 11:31 Temp 37.0 Pulse 79 Resp 18 B/P (MAP) 106/65 (79) Pulse Ox 100 Capillary Refill : General Appearance: WD/WN, no apparent distress HEENT: PERRL/EOMI, normal ENT inspection Neck: full range of motion, normal inspection Cardiovascular: regular rate, rhythm, no edema, no murmur Respiratory: lungs clear, normal breath sounds, no respiratory distress Gastrointestinal: normal bowel sounds, non tender, soft Neurologic/Psychiatric: no motor/sensory deficits, alert, normal mood/affect, oriented x 3 Skin: normal color, warm/dry Skin Problem Location: other (Left lateral thigh, proximal to knee.) Skin Problem Character: erythema (7 cm x 7 cm circular area of erythema, no induration appreciated, nonfluctuant. He does have pustule located center of redness.) Lymphatic: no adenopathy Progress/Results/Core Measures Results/Orders Vital Signs/I&O 12/20/20 12/20/20 11:31 12:41 Temp 37.0 37.0 Pulse 79 79 Resp 18 18 B/P (MAP) 106/65 (79) 106/65 (79) Pulse Ox 100 100 Progress Progress Note : Progress Note Patient examined and in no acute distress. Area of erythema appears to be caused by infected hair follicle. There is no induration or fluctuance noted. Demarcated area of redness with skin pen, discussed placing on mupirocin and Bactrim. He is to follow-up with his primary care provider or return if the redness is extending past the demarcated area. He is agreeable with this plan. Reviewed discharge instructions no questions or concerns voiced. Departure Impression Primary Impression: Bacterial folliculitis Disposition: 01 HOME, SELF-CARE Condition: Stable Departure-Patient Inst. Decision time for Depature: 12:17 Referrals: [facility] (PCP/Family) Primary Care Physician Patient Instructions: Bacterial Folliculitis (DC) Add. Discharge Instructions: Plan: 1. Wash area twice a day and apply Bactroban ointment to area. 2. Take antibiotics as directed and complete full course. 3. Monitor area marked with pen. If the redness continue to move past the demarcated line you will need to follow up with your doctor or return. 4. Keep area covered while draining. 5. Return to ER for any new, concerning, or worsening symptoms. All discharge instructions reviewed with patient and/or family. Voiced un derstanding. Scripts Sulfamethoxazole/Trimethoprim (Bactrim Ds Tablet) 1 Each Tablet 1 EACH PO BID for 7 Days, #14 TAB 0 Refills Prov: SARAH MOSES APRN 12/20/20 Mupirocin Calcium (Mupirocin) 15 Gm Cream..g. 1 APPLIC TP BID for 10 Days, #1 TUBE 0 Refills Prov: SARAH MOSES APRN 12/20/20 Work/School Note: Work Release Form Date Seen in the Emergency Department: Dec 20, 2020 Return to Work: Dec 21, 2020 Restrictions: No Restrictions SARAH MOSES [employer] Dec 20, 2020 12:21
[2020-12-20 12:41] VITALS: BP 106/65
== END 2020-12-20 12:41 | disposition home or self-care (01) ==
LOC: EDUNIT# 11:21 → ER 11:22
DX: L73.9 Follicular disorder, unspecified (principal); B95.62 Methicillin resistant Staphylococcus aureus infection as the cause of diseases classified elsewhere
CPT/HCPCS: 99282

== ENCOUNTER 2020-12-23 07:09 | Emergency (ER) | payer SELFPAY ==
[~2020-12-23] VITALS: Ht 177.8 cm; Wt 63.6 kg
[~2020-12-23 07:09] MED LIST changes: +MUPI15CR11 TP
[2020-12-23] MEDS ORDERED: RX-MUPIROCIN (BACTROBAN) 2% OINT 22 GM TUBE TOP STA (07:29)
--- NOTE | 2020-12-23 07:45 | ED Integumentary General ---
General Chief Complaint: Bite-Animal/Human/Insect Stated Complaint: L LEG SWELLING/PAIN Nursing Triage Note: AMB TO ED WAS SEEN IN ER FOR AREA ON L THIGH. WAS STARTED ON BACTRIM. AREA MORE PAINFUL RED WITH SWELLING UP AT SITE. Source: patient Exam Limitations: no limitations History of Present Illness Date Seen by Provider: Dec 23, 2020 Time Seen by Provider: 07:25 Initial Comments Here with report of worsening wound to the left leg just proximal to the knee. He is not sure exactly what happened but noted that he had a pimple, up after wearing heavy pants while working. That turned into a larger head. Seen a few days ago for the same and started on Bactrim DS. Initial dose of that was not until Saturday morning, 12/21/2020. Denies fever or chills. Does report increasing pain and redness. Timing/Duration: other (3 to 4 days) Severity: moderate Location: extremities Possible Cause: no cause identified Associated Symptoms: change in skin texture; No fever Allergies and Home Medications Allergies Coded Allergies: No Known Drug Allergies (Unverified , 11/29/11) Home Medications Clindamycin HCl 300 Mg Capsule, 300 MG PO QID Prescribed by: DAVID CLEMENTE on 10/04/20 0909 Cyclobenzaprine HCl 10 Mg Tablet, 10 MG PO Q8H PRN for SPASMS Prescribed by: JACQUELIN MCCOY on 08/30/19 0302 Mupirocin Calcium 15 Gm Cream..g., 1 APPLIC TP BID Prescribed by: SARAH MOSES on 12/20/20 1220 Sulfamethoxazole/Trimethoprim 1 Each Tablet, 1 EACH PO BID Prescribed by: SARAH MOSES on 12/20/20 1220 Patient Home Medication List Home Medication List Reviewed: Yes Review of Systems Review of Systems Constitutional: see HPI; No chills, No fever Respiratory: no symptoms reported Cardiovascular: no symptoms reported Skin: see HPI, change in color, lesions Psychiatric/Neurological: No Symptoms Reported Past Dsavoxv-Brittc-Benbvh Hx Patient Social History Tobacco Use?: Yes Tobacco type used: Cigarettes Substance use?: Yes Substance type: Marijuana Alcohol Use?: No Pt feels they are or have been: No Immunizations Up To Date Tetanus Booster (TDap): Less than 5yrs PED Vaccines UTD: Yes Influenza Vaccine Up-to-Date: Yes; Up-to-Date First/Initial COVID19 Vaccinat: NO Seasonal Allergies Seasonal Allergies: Yes Past Medical History Surgeries: Yes Orthopedic Respiratory: No Cardiac: No Heart Murmur Neurological: No Reproductive Disorders: No Sexually Transmitted Disease: No Genitourinary: No Gastrointestinal: No Musculoskeletal: No Arthritis Endocrine: No HEENT: No Cancer: No Psychosocial: No Sleep Difficulties, Suicide Attempts, Depression Integumentary: No Blood Disorders: No Family Medical History Reviewed Nursing Family Hx Physical Exam Vital Signs Vital Signs - First Documented 12/23/20 07:14 Temp 36.8 Pulse 84 Resp 18 B/P (MAP) 134/80 (98) Capillary Refill : Less Than 3 Seconds General Appearance: WD/WN, no apparent distress Cardiovascular: regular rate, rhythm, no murmur Respiratory: lungs clear, normal breath sounds Neurologic/Psychiatric: alert, oriented x 3 Skin: warm/dry Skin Problem Location: lower extremities Skin Problem Character: abscess, erythema, other (Small central pustule that is draining bloody/purulent drainage and surrounded by approximately 4 cm of erythema. 3 to 4 mL of purulent drainage expressed from wound) Progress/Results/Core Measures Results/Orders My Orders Orders - JACQUELIN MCCOY MD Rx-Mupirocin 2% Oint (Rx-Bactroban) (12/23/20 07:29) Vital Signs/I&O 12/23/20 07:14 Temp 36.8 Pulse 84 Resp 18 B/P (MAP) 134/80 (98) Blood Pressure Mean: 98 Progress Progress Note : Progress Note Seen and evaluated. Wound evaluated and cleaned and purulent drainage began draining from the wound. This was expressed and wound culture obtained. Covered with mupirocin ointment after cleaning and covered with a Band-Aid. Discharged home with return precautions. Patient verbalized understanding of instructions and agreement with plan. Departure Impression Primary Impression: Abscess Disposition: 01 HOME, SELF-CARE Condition: Improved Departure-Patient Inst. Decision time for Depature: 07:44 Referrals: [facility] (PCP/Family) Primary Care Physician Patient Instructions: ABSCESS Add. Discharge Instructions: All discharge instructions reviewed with patient and/or family. Voiced understanding. Your wound is draining now. You will need to clean the wound twice daily and reapply topical antibiotic ointment and Band-Aid. You will need to do this for at least the next 5 to 7 days. Continue oral antibiotics as prescribed. You may take Tylenol/ibuprofen as needed for pain per package directions. Return for markedly increasing pain, redness extending up the leg, fevers or other concerns as needed. JACQUELIN MCCOY MD Dec 23, 2020 07:45
[2020-12-23 07:57] VITALS: BP 134/80
== END 2020-12-23 07:56 | disposition home or self-care (01) ==
LOC: EDUNIT# 07:09 → ER 07:10
DX: L02.416 Cutaneous abscess of left lower limb (principal)
CPT/HCPCS: 87070; 87077; 87186; 87205; 99283